=== PATIENT | female | born 1985 | race Caucasian/White ===

== ENCOUNTER 2025-01-21 10:24 | Observation (INO) | payer OTHER, SELFPAY ==
[2025-01-21] VITALS (14 sets, daily range): BP systolic 108–130; BP diastolic 25–76; PULSE 90–113; RESP 16–28; TEMP 36.1–37.1; O2SAT 98–100; BMI 24.0
--- NOTE | ~2025-01-21 | CT_ITS ---
EXAMINATION: CTA chest PE protocol DATE: 01/21/2025 14:08 INDICATION: Transient breath, chest pain and elevated d-dimer. TECHNIQUE: Computed tomography (CT) pulmonary angiogram of the chest was performed with 100 mL Omnipa que-350 intravenous contrast. Additional 3D reconstructions utilizing coronal maximum intensity proje ction (MIP) were performed. Automated exposure control and iterative reconstruction technique were em ployed. The dose-length product was 253.06 mGy-cm. COMPARISON: None FINDINGS: No pulmonary embolism. Calcified nodules in the superior segment of the right lower lobe consistent w ith old granulomatous disease. Mosaic attenuation in the dependent lower lobes consistent with atelec tasis and small regions of subsegmental more lucent air trapping. No pneumonia, pulmonary edema, pleu ral effusion or pneumothorax. Heart size is normal. No pericardial effusion. Thoracic aorta is normal in caliber. No pathologically enlarged thoracic lymphadenopathy. Visualized upper abdomen is unremar kable. Bones are unremarkable. IMPRESSION: 1. No pulmonary embolism or other acute cardiopulmonary disease. Reviewed, dictated and finalized at location A.
--- NOTE | ~2025-01-21 | XR_ITS ---
EXAMINATION: XR chest 2V 01/21/2025 11:20 INDICATION: Chest pain PROCEDURE: 2 view chest COMPARISON: No prior studies for comparison. FINDINGS: The lungs are clear. The cardiomediastinal silhouette is within normal limits. There are no pleural effusions. There is no pneumothorax suspected. IMPRESSION: 1: NO ACUTE CARDIOPULMONARY DISEASE. Reviewed, dictated and finalized at location B.
--- NOTE | 2025-01-21 10:27 | ECG_ITS ---
Test Date: 2025-01-21 10:36:55 Measurements Intervals [place] Rate: 98 P: 26 RI: 115 QRS: 0 QRSD: 93 T: 45 QT: 329 QTc: 422 Interpretive Statements SINUS RHYTHM WITH SHORT RI INTERVAL BASELINE ARTIFACT- I, II, AVR, AVL, AVF, V1-V2, V4-V6 BORDERLINE ECG No previous ECG available for comparison Electronically Signed On 01-21-2025 10:50:41 CDT by Geraldo Bui D.O.
--- NOTE | 2025-01-21 10:51 | PC.NURSE ---
patient requesting zofran before blood draw due to history of becoming nauseated when getting blood drawn. CHANTAL Marquez and CRISTIAN Horta aware.
[2025-01-21] MEDS: ONDANSETRON HCL ODT 4 MG TABLET PO (10:54)
[2025-01-21] MEDS: ASPIRIN 81 MG CHEWABLE TABLET 324 MG PO (10:54)
--- OUTSIDE RECORDS SUMMARY | 2025-01-21 10:57 | XMS_ITS | Data Portability ---
Author Organization [email or web address], Main Office Address [address] [place] [address] Assessment No assessment recorded. Plan of Treatment Reminders Order Date Submit Date Provider Last Modified By Organization Details Last Modified Time Details Appointments None recorded. Lab None recorded. Referral None recorded. Procedures None recorded. Surgeries None recorded. Imaging None recorded. Medication Orders neomycin 3.5 mg-polymyxi n 10,000 unit-hydroc ort 10 mg/mL eye drop,susp 2022 023 [facility] [id number], [address], 3 09:42:53 sertraline 50 mg tablet 2022 023 [facility] [id number] [address] [place], [address], 3 09:42:53 Patient TargetsNo targets recorded. Patient InstructionsNo instructions recorded. Reason for Referral None Reported. Problems Name Problem SNOMED Code Status Onset Date Resolution Date Notes Provider Name and Address Organization Details Recorded Time Generalized anxiety disorder 61626792 Active 2021 Not Available [facility] 3 20:01:48 Dyssomnia 12640393 Active 2021 Not Available [facility] 3 20:01:48 Anxiety 89255562 Active 2017 Not Available [facility] 3 20:01:48 Conjunctivitis 8155478 Active 2022 CHANTAL Prakash [address], [place], [address] , [email or web address] 3 09:42:13 Problem Notes None recorded. Procedures Surgical History Date Name Laterality Status Provider Name and Address Organization Details Recorded Time completed Not Available [facility] 0 10/09/2022 20:01:30 completed Not Available [facility] 0 10/09/2022 20:01:30 Imaging Results None recorded. Procedure Notes None recorded. Medical Equipment None Reported. Allergies Allergen ID Allergen Name Allergen Category Reaction Reaction Severity Criticality Documentation Date Start Date Code Code System Note Provider Name and Address Organization Details Recorded Time 42594 clindamyc in Not available other Not available Not available 10/09/2022 2582 RxNorm incre ased anxie ty Not Available [facility] 3 20:02:37 Medications Name Sig Start Date Stop Date Status Note LastModified by Organization Details LastModified Time Mirena 21 mcg/24 hr (up to 8 years) 52 mg intrauterin e device Take by intrauter ine route. 2019 active Not Available Not Available Not Avai lable clindamycin HCl 300 mg capsule 09/20 completed Not Available Not Available Not Available sertraline 100 mg tablet TAKE 1 TABLET BY MOUTH EVERY DAY 07/24 completed Not Available Not Available Not Available metronidazo le 500 mg tablet 09/20 completed Not Available Not Available Not Available amoxicillin 875 mg tablet Take 1 tablet every 12 hours by oral route. active Not Available Not Available No t Available alprazolam 0.25 mg tablet TAKE 1 TABLET BY MOUTH TWICE A DAY NEEDED 07/24 completed Not Available Not Available Not Available lorazepam 0.5 mg tablet TAKE 1 TABLET (0.5 MG) BY MOUTH ONE TIME FOR 1 DOSE. 07/24 completed Not Available Not Available Not Available neomycin-po lymyxin-dex ameth 3.5 mg/mL-10,00 0 unit/mL-0.1 % eye drops INSTILL 1 DROP INTO THE RIGHT EYE THREE TIMES DAILY active Not Available Not Available No t Available misoprostol 200 mcg tablet PLEASE SEE ATTACHED FOR DETAILED DIRECTION S 07/24 completed Not Available Not Available Not Available zolpidem 10 mg tablet TAKE 1 TABLET BY MOUTH EVERY DAY AT BEDTIME NEEDED active Not Available Not Available No t Available scopolamine 1 mg over 3 days transdermal patch Apply 1 patch every 72 hours by transderm al route as needed. active Not Available Not Available No t Available neomycin 3.5 mg-polymyxi n 10,000 unit-hydroc ort 10 mg/mL eye drop,susp INSTILL 1 DROP INTO AFFECTED EYE(S) BY OPHTHALMI C ROUTE EVERY 4 HOURS while awake for 5-7 days 2022 active Not Available Not Available Not Avai lable sertraline 50 mg tablet TAKE 1 TABLET BY MOUTH EVERY DAY active Not Available Not Available No t Available doxycycline hyclate 100 mg tablet TAKE 1 TABLET BY MOUTH TWICE DAILY WITH MEALS active Not Available Not Available No t Available escitalopra m 20 mg tablet Take 1 tablet every day by oral route. 09/20 completed Not Available Not Available Not Available Lexapro 10 mg tablet Take 1 tablet every day by oral route. 09/14 completed Not Available Not Available Not Available Vitals Date Recorded Body mass index (BMI) Body height Heart rate Respiratory rate Body temperature Body weight Systolic blood pressure Diastolic blood pressure Provider Name and Address Organization Details Last Updated DateTime 2 25.8 kg/m2 167.64 cm 80 /min 16 /min 97.9 [degF] 46672.7 8 g 120 mm[Hg] 80 mm[Hg] Not Available [facility] 3 20:01:34 Date Recorded Body height Oxygen saturation Oxygen saturation in Arterial blood by Pulse oximetry Heart rate Respiratory rate Body temperature Systolic blood pressure Diastolic blood pressure Provider Name and Address Organization Details Last Updated DateTime 2 167.64 cm 97 % 97 % 70 /min 16 /min 98 [degF] 118 mm[Hg] 68 mm[Hg] Not Available [facility] 3 20:01:34 Date Recorded Body height Body temperature Body mass index (BMI) Body weight Respiratory rate Oxygen saturation Oxygen saturation in Arterial blood by Pulse oximetry Heart rate Systolic blood pressure Diastolic blood pressure Provider Name and Address Organization Details Last Updated DateTime 3 167.64 cm 97.5 [degF] 27.5 kg/m2 90213.5 g 16 /min 99 % 99 % 64 /min 118 mm[Hg] 78 mm[Hg] TERA Funes [place] - [facility] 3 09:16:07 Social History Question Answer Notes LastModified by Organizat ion Details LastModified Time Tobacco Smoking Status Never Smoker Not Available [facility] 10/09/2022 20:01:25 Do You Have An Advance Directive? Yes [id number] Information not available 10/09/2022 What Is Your Level Of Caffeine Consumption? Heavy [id number] Information not available 10/09/2022 In The 14 Days Before Symptom Onset, Have You Had Close Contact With A Laboratory-confirm ed COVID-19 While That Case Was Ill? No [id number] Information not available 10/09/2022 In The 14 Days Before Symptom Onset, Have You Had Close Contact With A Person Who Is Under Investigation For COVID-19 While That Person Was Ill? No [id number] Information not available 10/09/2022 What Type Of Diet Are You Following? REGULAR [id number] Information not available 10/09/2022 What Is The Highest Grade Or Level Of School You Have Completed Or The Highest Degree You Have Received? BX39545-0 [id number] Information not available 10/09/2022 Have There Been Any Changes To Your Family Or Social Situation? No [id number] Information not available 10/09/2022 Are There Any Guns Present In Your Home? Yes [id number] Information not available 10/09/2022 Do You Use Insect Repellent Routinely? No [id number] Information not available 10/09/2022 Have You Ever Been Counseled For Unhealthy Alcohol Use? No [id number] [id number] Information not available 10/09/2022 What Is Your Relationship Status? Single [id number] 026 Information not available 10/09/2022 Do You Use Your Seat Belt Or Car Seat Routinely? Yes [id number] Information not available 10/09/2022 Do You Have Smoke And Carbon Monoxide Detectors In Your Home? Yes [id number] 026 Information not available 10/09/2022 Do You Use Sunscreen Routinely? Yes [id number] 026 Information not available 10/09/2022 Has Tobacco Cessation Counseling Been Provided? No [id number].[id number] 026 Information not available 10/09/2022 Have You Recently Traveled Abroad? No [id number] 026 Information not available 10/09/2022 Do You Have Any Dietary Restrictions? No [id number] 026 Information not available 10/09/2022 Sex: Unknown Functional Status Question Answer Note LastModified by Organizat ion Details LastModified Time Do you use any illicit or recreational drugs? No [id number] Information not available 10/09/2022 Do you or have you ever used any other forms of tobacco or nicotine? No [id number] Information not available 10/09/2022 What is your level of alcohol consumption? Occasional [id number] Information not available 10/09/2022 Are you currently employed? 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 Moderate [id number].[id number] Information not available 10/09/2022 Mental Status None recorded. Family History Relationship Description Onset Age of this Age Resolved Age Notes LastModified by Organization Details LastModified Time Father Hypertensive disorder [id number] Not available 10/09/2022 20:01:30 Medical History Condition Response HEADACHES/MIGRAINES Y ANXIETY DISORDER Y BACK / NECK PROBLEMS Y Gynecological History Statement/Question Response Menses Monthly N Abnormal Pap N Date of Last Pap 08/11/2015 Current Control Method IUD Sexually Active? Y Obstetrics History GPAL:G 2 P 0 0 0 2 Type Value Living 2 Total 2 Past Encounters Encounter ID Performer Location Encounter Start Date Encounter Closed Date Diagnosis/Indication Diagnosis SNOMED-CT Code Diagnosis ICD10 Code Diagnosis Note [id number] CHANTAL Prakash [facility] [place] [address] [place] [address] 11/12/2021 00:00:00 12/08/2021 13:24:02 [id number] CHANTAL Prakash [facility] [place] [address] [place] [address] 05/13/2022 00:00:00 05/13/2022 10:56:05 [id number] CHANTAL Prakash [facility] [place] [address] [place] [address] 07/24/2023 09:09:53 07/24/2023 09:42:05 Adult health examination 376334993 Z00.01 well exam completed. pt declines labs at this time. Generalize d anxiety disorder 75833142 F41.1 refill on sertraline 50mg daily. Conjunctivitis 6345974 H 10.9 rx for neomycin drops as directed Health Concerns Section Related Observation LastModified by Organization Detai ls LastModified Time None Recorded Concern Status LastModified by Organization Details LastModified Time None Recorded Advance Directives Directive Y: Payers Insurance Date Sequence Insurance Name Policy Number Policy Carroll Covered Member ID Carroll Member ID Guarantor Name 08/07/2023 1 [facility] [id number] Lydia Adams [id number] Lydia Adams 07/23/2023 1 [facility] [id number] Lydia Adams [id number] Lydia Adams Notes Date Note Type Note Provider Name and Address Organization Details Recorded Time 11/12/2021 text/html Anxiety/Depressi onR eported bypatient.Quality:s ymptoms worse during the day Severity:denies suicidal ideations; able to maintain relationships;inter ference with sleep Duration:symptoms lasting over 2 weeks Onset/Timing:still present Context:major life stressors;family problems;trouble at work Modifying Factors:medications as directed Associated Symptoms:denies homicidal ideations; no significant weight gain; no significant weight loss; no visual/auditory hallucinations; no delusions; no shortness of breath; no crying spells; no panic; no isolation; appetite good; energy good; no apathy; maintaining functionality;anxie ty;insomnia;sleep disturbances Not Available [email or web address] 12/08/2021 13:24:02 05/13/2022 text/html Anxiety/Depressi onR eported bypatient.Quality:s ymptoms improved Severity:denies suicidal ideations; able to maintain relationships; does not interfere with activities of daily living Context:no major life stressors Associated Symptoms:denies homicidal ideations; no significant weight gain; no significant weight loss; no visual/auditory hallucinations; no delusions; no shortness of breath; mood good; no anxiety; no crying spells; no panic; no isolation; appetite good; energy good; no apathy; maintaining functionality Not Available [email or web address] 05/13/2022 10:56:05 07/24/2023 text/html Anxiety/Depressi onR eported bypatient.Quality:d oesnt matter time of day Severity:denies suicidal ideations; able to maintain relationships; does not interfere with activities of daily living Duration:symptoms lasting over 2 weeks Onset/Timing:still present; stable Context:no major life stressors Modifying Factors:rx Associated Symptoms:denies homicidal ideations; no significant weight gain; no significant weight loss; no visual/auditory hallucinations; no delusions; no shortness of breath Wellness CHANTAL Prakash [address] [place] [address] [address], [place], [address], [place] [facility] 08/07/2023 15:44:16 OBGyn Episode No OBEpisode recorded.
--- NOTE | 2025-01-21 10:58 | PC.NURSE ---
patient unable to provide urine sample at this time, states she will just drink a bunch of water. educated patient at this time to hold off on any oral intake at this time until we start having test results come in
--- NOTE | 2025-01-21 11:02 | ED_ITS ---
HPI - Arrhythmia/Palpitations General Chief Complaint: Arrhythmia/Palpitations <SYBIL Miranda Last Filed: 01/21/25 15:40> Stated Complaint: cp, rapid heart rate <SYBIL Miranda Last Filed: 01/21/25 15:40> Time Seen by Provider: 01/21/25 10:33 <SYBIL Miranda Last Filed: 01/21/25 15:40> Source: patient <SYBIL Miranda Last Filed: 01/21/25 15:40> Mode of arrival: ambulatory <SYBIL Miranda Last Filed: 01/21/25 15:40> Limitations: no limitations <SYBIL Miranda Last Filed: 01/21/25 15:40> History of Present Illness HPI narrative: Patient is a 39 y/o female, with PMH of anxiety, who presents to the ED with c/o chest pain and weakness. Patient reports previous history of anxiety, states she was on a medication for this for approximately 1 year, but is no longer on this. She states she had a severe anxiety attack in October. Since then, she has been having intermittent weakness, CP, racing heart palpitations, HAs. She states yesterday she had a 103F fever which prompted her presentation. She did also have a fever last week. She denies recent cough or cold symptoms, nausea, vomiting, diarrhea, rash, wounds, pain or swelling in her legs. Denies shortness of breath. <SYBIL Miranda Last Filed: 01/21/25 15:40> Related Data Home Medications: Home Medications ?Medication ?Instructions ?Recorded ?Confirmed ?Last Taken ?Type No Home Medications 01/21/25 01/21/25 Unknown History <SYBIL Miranda Last Filed: 01/21/25 15:40> Allergies/Adverse Reactions: Allergies Allergy/AdvReac Type Severity Reaction Status Date / Time No Known Allergies Allergy Verified 01/21/25 17:55 <SYBIL Miranda Last Filed: 01/21/25 15:40> Review of Systems 2 Review of Systems: All systems reviewed & are unremarkable except as noted in HPI. <Alma Perrin PA-C - Last Filed: 01/21/25 15:40> All systems reviewed & are unremarkable except as noted in HPI and below < Alma Perrin PA-C - Last Filed: 01/21/25 15:40> [facility] Family History Family History: Family History (Updated 01/21/25 @ 17:49 by Lalitha Beckwith RN) Father Hypertension Mother Heart disease <Alma Perrin PA-C - Last Filed: 01/21/25 15:40> Social History Social History: Social History Smoking status: Never smoker Alcohol intake: former Drinks per week: 2 Substance use: never Do You Feel Safe in your Home?: Yes Lack of Transportation: No Lack of Food: Never True Current Housing: I Have Housing Concerned About Future Housing: No Difficulty Paying Gas/Electric Bills: No Difficulty Paying for Meds: No Currently Unemployed: No Education: Don't Know Difficulty w/ Childcare or Family Care: No Spiritual care concerns: No <Alma Perrin PA-C - Last Filed: 01/21/25 15:40> Exam 2 Narrative: GENERAL: Anxious appearing, well-nourished, non-toxic, in no acute distress. HEAD: Normocephalic, atraumatic. RESPIRATORY: Airway patent, respirations nonlabored. Clear to auscultation bilaterally, no rales, rhonchi, wheezing. CARDIOVASCULAR: Borderline tachycardic with regular rhythm without murmurs, rubs, or gallops. ABDOMINAL: Soft, nontender, nondistended. Normoactive BS. MUSCULOSKELETAL: Moves all extremities. No gross deformities. No peripheral edema. No calf tenderness. SKIN: Warm, dry, normal color. NEURO: A&O X3. Speech clear. Cranial nerves II-XII grossly intact. Steady gait. No ataxic movements. PSYCHIATRIC: Anxious. Normal interaction. <Alma Perrin PA-C - Last Filed: 01/21/25 15:40> Course MARINE REPORTER/PA Physician Supervision For this patient encounter, I reviewed the MARINE REPORTER or PA documentation, treatment plan, and medical decision making; and I had [id number] time with this patient. <Georgi Arora MD - Last Filed: 01/21/25 18:22> Vital Signs Vital signs: Vital Signs Oxygen Delivery Room Air 01/21/25 10:48 Temperature 98.0 F 01/21/25 17:39 Pulse Rate 94 01/21/25 17:39 Respiratory Rate 16 01/21/25 17:39 Blood Pressure 124/72 01/21/25 17:39 Pulse Oximetry 100 01/21/25 17:39 Oxygen Delivery Room Air 01/21/25 10:48 <Alma Perrin PA-C - Last Filed: 01/21/25 15:40> Vital Signs Oxygen Delivery Room Air 01/21/25 10:48 Temperature 98.0 F 01/21/25 17:39 Pulse Rate 94 01/21/25 17:39 Respiratory Rate 16 01/21/25 17:39 Blood Pressure 124/72 01/21/25 17:39 Pulse Oximetry 100 01/21/25 17:39 Oxygen Delivery Room Air 01/21/25 10:48 <Georgi Arora MD - Last Filed: 01/21/25 18:22> MDM - Arrhythmia/Palpitations MDM Narrative Medical decision making narrative: Patient presented to ED with intermittent racing heart palpitations, chest pain, weakness since October. History of anxiety. Patient is borderline tachycardic upon arrival. Rates more in the 90s upon my evaluation. Otherwise stable. She does appear mildly anxious. EKG with sinus rhythm, short AL, otherwise unremarkable. No concerning ischemic changes. CBC did result with marked anemia of 5.6. No records to compare to. Hematocrit 22.1. Microcytic with MCV of 61.4. No leukocytosis. Platelets within normal range. CMP unremarkable. Stable electrolytes. Normal magnesium. Troponin undetectable X2. TSH WNL. Chest x-ray is clear. D-dimer did result elevated at 1.96. CTA of chest was obtained and unremarkable. No PE. Patient updated on lab and imaging findings. She denies ever being told she has been anemic before. Does note history of internal hemorrhoid which bleeds occasionally, denies other rectal bleeding, melena, heavy vaginal bleeding, hematuria, epistaxis. Denies history of previous blood transfusion. Patient declined JOI in the ED. Anemia labs were added on. Appears consistent with iron deficiency anemia. 2U PRBC ordered. Will be admitted for further evaluation. Discussed case with Almaz Gamboa MARINE REPORTER hospitalist, accepted patient for admission. Patient in agreement with plan and need for admission. <Alma Perrin PA-C - Last Filed: 01/21/25 15:40> Medical Records Attestation: I reviewed the patient's medical records. <Alma Perrin PA-C - Last Filed: 01/21/25 15:40> Lab Data Attestation: I reviewed the patient's lab results. <Alma Perrin PA-C - Last Filed: 01/21/25 15:40> Result diagrams: 01/21/25 11:31 01/21/25 11:31 <SYBIL Miranda Last Filed: 01/21/25 15:40> Labs: Lab Results 01/21/25 01/21/25 01/21/25 Range/Units 11:29 11:30 11:31 WBC 5.7 (4.5-10.0) K/mm3 RBC 3.60 L (4.2-5.4) M/mm3 Hgb 5.6 L* (12.0-15.0) g/dL Hct 22.1 L (37.0-47.0) % MCV 61.4 L (80-100) fl MCH 15.6 L (26-34) pg MCHC 25.3 L (32-36) g/dl RDW 22.5 H (11.5-14.5) % Plt Count 198 (150-375) k/mm3 MPV 8.3 (7.4-10.4) fl Immature Gran % (Auto) 0.4 (0-0.5) % Neut % (Auto) 57.8 (45.5-73.1) % Lymph % (Auto) 28.5 (18.3-44.2) % [place] % (Auto) 12.2 H (2.6-8.5) % Eos % (Auto) 0.4 (0-4.4) % Baso % (Auto) 0.7 (0.2-1.2) % Lymph # (Auto) 1.61 (0.9-3.2) K/mm3 [place] # (Auto) 0.7 H (0.1-0.6) K/mm3 Eos # (Auto) 0.0 (0-0.3) K/mm3 Baso # (Auto) 0.0 (0.0-0.1) K/mm3 Abs Immat Gran (auto) 0.02 (0.00-0.031) K/mm3 Absolute Neuts (auto) 3.3 (1.3-6.7) K/mm3 Absolute Nucleated RBC 0.000 (0.0-0.012) K/mm3 Band Neutrophils % Not Reportable Nucleated RBC % 0.0 (0.0-0.2) % Platelet Estimate Adequate (Adequate) Hypochromasia 2+ Poikilocytosis 1+ Anisocytosis 2+ Target Cells 1+ Tear Drop Cells 1+ Ovalocytes 1+ Acanthocytes (Spur) 1+ Schistocytes 1+ Absolute Retic 0.06 (0.02-0.10) 10^6/uL Percent Retic 1.86 (0.7-4.3) % Immature Retic Fraction 32.7 H (3.0-15.9) % Retic Hgb Content 15.5 L (28.2-36.6) pg PT 13.3 Cancelled (11.1-14.7) Seconds INR 1.0 Cancelled APTT 25.7 Cancelled (22.3-36.8) Seconds D-Dimer 1.96 H Cancelled (<0.48) ug/mL Sodium 136 L (137-145) mmol/L Potassium 3.9 (3.4-5.0) mmol/L Chloride 107 (98-107) mmol/L Carbon Dioxide 24 (22-30) mmol/L Anion Gap 5 (4-12) mmol/L BUN 7 (7-17) mg/dL Creatinine 0.69 L (0.7-1.0) mg/dL Estim Creat Clear Calc Not Reportable Estimated GFR > 60 (59 - ) Glucose 99 (65-110) mg/dL Calcium 8.6 (8.4-10.2) mg/dL Magnesium Cancelled 2.1 Iron 18 L (37-170) ug/dL TIBC 416 (261-462) ug/dL % Saturation 4 L (20-50) % Transferrin (206-381) mg/dL Ferritin 3.42 L (6.24-137) ng/mL Total Bilirubin 0.2 (0.2-1.3) mg/dL AST 28 (14-36) U/L ALT 15 (6-35) U/L Alkaline Phosphatase 60 (38-126) U/L Lactate Dehydrogenase (120-246) U/L Troponin I < 0.012 (0.000-0.034) ng/mL Total Protein 6.3 (6.3-8.2) g/dL Albumin 3.6 (3.5-5.1) g/dL Lipase 26 (23-300) U/L Vitamin B12 (239-931) pg/mL Folate (2.76->20) ng/mL TSH (Reflex) 1.210 (0.465-4.68) uIU/mL Blood Type Antibody Screen Crossmatch 01/21/25 Range/Units 13:27 WBC (4.5-10.0) K/mm3 RBC (4.2-5.4) M/mm3 Hgb (12.0-15.0) g/dL Hct (37.0-47.0) % MCV (80-100) fl MCH (26-34) pg MCHC (32-36) g/dl RDW (11.5-14.5) % Plt Count (150-375) k/mm3 MPV (7.4-10.4) fl Immature Gran % (Auto) (0-0.5) % Neut % (Auto) (45.5-73.1) % Lymph % (Auto) (18.3-44.2) % [place] % (Auto) (2.6-8.5) % Eos % (Auto) (0-4.4) % Baso % (Auto) (0.2-1.2) % Lymph # (Auto) (0.9-3.2) K/mm3 [place] # (Auto) (0.1-0.6) K/mm3 Eos # (Auto) (0-0.3) K/mm3 Baso # (Auto) (0.0-0.1) K/mm3 Abs Immat Gran (auto) (0.00-0.031) K/mm3 Absolute Neuts (auto) (1.3-6.7) K/mm3 Absolute Nucleated RBC (0.0-0.012) K/mm3 Band Neutrophils % Nucleated RBC % (0.0-0.2) % Platelet Estimate (Adequate) Hypochromasia Poikilocytosis Anisocytosis Target Cells Tear Drop Cells Ovalocytes Acanthocytes (Spur) Schistocytes Absolute Retic (0.02-0.10) 10^6/uL Percent Retic (0.7-4.3) % Immature Retic Fraction (3.0-15.9) % Retic Hgb Content (28.2-36.6) pg PT (11.1-14.7) Seconds INR APTT (22.3-36.8) Seconds D-Dimer (<0.48) ug/mL Sodium (137-145) mmol/L Potassium (3.4-5.0) mmol/L Chloride (98-107) mmol/L Carbon Dioxide (22-30) mmol/L Anion Gap (4-12) mmol/L BUN (7-17) mg/dL Creatinine (0.7-1.0) mg/dL Estim Creat Clear Calc Estimated GFR (59 - ) Glucose (65-110) mg/dL Calcium (8.4-10.2) mg/dL Magnesium Iron (37-170) ug/dL TIBC (261-462) ug/dL % Saturation (20-50) % Transferrin 319 (206-381) mg/dL Ferritin (6.24-137) ng/mL Total Bilirubin (0.2-1.3) mg/dL AST (14-36) U/L ALT (6-35) U/L Alkaline Phosphatase (38-126) U/L Lactate Dehydrogenase 150 (120-246) U/L Troponin I < 0.012 (0.000-0.034) ng/mL Total Protein (6.3-8.2) g/dL Albumin (3.5-5.1) g/dL Lipase (23-300) U/L Vitamin B12 585.0 (239-931) pg/mL Folate 13.8 (2.76->20) ng/mL TSH (Reflex) (0.465-4.68) uIU/mL Blood Type O Positive Antibody Screen Negative Crossmatch See Detail <Alma Perrin PA-C - Last Filed: 01/21/25 15:40> Lab Results 01/21/25 01/21/25 01/21/25 Range/Units 11:29 11:30 11:31 WBC 5.7 (4.5-10.0) K/mm3 RBC 3.60 L (4.2-5.4) M/mm3 Hgb 5.6 L* (12.0-15.0) g/dL Hct 22.1 L (37.0-47.0) % MCV 61.4 L (80-100) fl MCH 15.6 L (26-34) pg MCHC 25.3 L (32-36) g/dl RDW 22.5 H (11.5-14.5) % Plt Count 198 (150-375) k/mm3 MPV 8.3 (7.4-10.4) fl Immature Gran % (Auto) 0.4 (0-0.5) % Neut % (Auto) 57.8 (45.5-73.1) % Lymph % (Auto) 28.5 (18.3-44.2) % [place] % (Auto) 12.2 H (2.6-8.5) % Eos % (Auto) 0.4 (0-4.4) % Baso % (Auto) 0.7 (0.2-1.2) % Lymph # (Auto) 1.61 (0.9-3.2) K/mm3 [place] # (Auto) 0.7 H (0.1-0.6) K/mm3 Eos # (Auto) 0.0 (0-0.3) K/mm3 Baso # (Auto) 0.0 (0.0-0.1) K/mm3 Abs Immat Gran (auto) 0.02 (0.00-0.031) K/mm3 Absolute Neuts (auto) 3.3 (1.3-6.7) K/mm3 Absolute Nucleated RBC 0.000 (0.0-0.012) K/mm3 Band Neutrophils % Not Reportable Nucleated RBC % 0.0 (0.0-0.2) % Platelet Estimate Adequate (Adequate) Hypochromasia 2+ Poikilocytosis 1+ Anisocytosis 2+ Target Cells 1+ Tear Drop Cells 1+ Ovalocytes 1+ Acanthocytes (Spur) 1+ Schistocytes 1+ Absolute Retic 0.06 (0.02-0.10) 10^6/uL Percent Retic 1.86 (0.7-4.3) % Immature Retic Fraction 32.7 H (3.0-15.9) % Retic Hgb Content 15.5 L (28.2-36.6) pg PT 13.3 Cancelled (11.1-14.7) Seconds INR 1.0 Cancelled APTT 25.7 Cancelled (22.3-36.8) Seconds D-Dimer 1.96 H Cancelled (<0.48) ug/mL Sodium 136 L (137-145) mmol/L Potassium 3.9 (3.4-5.0) mmol/L Chloride 107 (98-107) mmol/L Carbon Dioxide 24 (22-30) mmol/L Anion Gap 5 (4-12) mmol/L BUN 7 (7-17) mg/dL Creatinine 0.69 L (0.7-1.0) mg/dL Estim Creat Clear Calc Not Reportable Estimated GFR > 60 (59 - ) Glucose 99 (65-110) mg/dL Calcium 8.6 (8.4-10.2) mg/dL Magnesium Cancelled 2.1 Iron 18 L (37-170) ug/dL TIBC 416 (261-462) ug/dL % Saturation 4 L (20-50) % Transferrin (206-381) mg/dL Ferritin 3.42 L (6.24-137) ng/mL Total Bilirubin 0.2 (0.2-1.3) mg/dL AST 28 (14-36) U/L ALT 15 (6-35) U/L Alkaline Phosphatase 60 (38-126) U/L Lactate Dehydrogenase (120-246) U/L Troponin I < 0.012 (0.000-0.034) ng/mL Total Protein 6.3 (6.3-8.2) g/dL Albumin 3.6 (3.5-5.1) g/dL Lipase 26 (23-300) U/L Vitamin B12 (239-931) pg/mL Folate (2.76->20) ng/mL TSH (Reflex) 1.210 (0.465-4.68) uIU/mL Blood Type Antibody Screen Crossmatch 06/13/25 Range/Units 13:27 WBC (4.5-10.0) K/mm3 RBC (4.2-5.4) M/mm3 Hgb (12.0-15.0) g/dL Hct (37.0-47.0) % MCV (80-100) fl MCH (26-34) pg MCHC (32-36) g/dl RDW (11.5-14.5) % Plt Count (150-375) k/mm3 MPV (7.4-10.4) fl Immature Gran % (Auto) (0-0.5) % Neut % (Auto) (45.5-73.1) % Lymph % (Auto) (18.3-44.2) % [place] % (Auto) (2.6-8.5) % Eos % (Auto) (0-4.4) % Baso % (Auto) (0.2-1.2) % Lymph # (Auto) (0.9-3.2) K/mm3 [place] # (Auto) (0.1-0.6) K/mm3 Eos # (Auto) (0-0.3) K/mm3 Baso # (Auto) (0.0-0.1) K/mm3 Abs Immat Gran (auto) (0.00-0.031) K/mm3 Absolute Neuts (auto) (1.3-6.7) K/mm3 Absolute Nucleated RBC (0.0-0.012) K/mm3 Band Neutrophils % Nucleated RBC % (0.0-0.2) % Platelet Estimate (Adequate) Hypochromasia Poikilocytosis Anisocytosis Target Cells Tear Drop Cells Ovalocytes Acanthocytes (Spur) Schistocytes Absolute Retic (0.02-0.10) 10^6/uL Percent Retic (0.7-4.3) % Immature Retic Fraction (3.0-15.9) % Retic Hgb Content (28.2-36.6) pg PT (11.1-14.7) Seconds INR APTT (22.3-36.8) Seconds D-Dimer (<0.48) ug/mL Sodium (137-145) mmol/L Potassium (3.4-5.0) mmol/L Chloride (98-107) mmol/L Carbon Dioxide (22-30) mmol/L Anion Gap (4-12) mmol/L BUN (7-17) mg/dL Creatinine (0.7-1.0) mg/dL Estim Creat Clear Calc Estimated GFR (59 - ) Glucose (65-110) mg/dL Calcium (8.4-10.2) mg/dL Magnesium Iron (37-170) ug/dL TIBC (261-462) ug/dL % Saturation (20-50) % Transferrin 319 (206-381) mg/dL Ferritin (6.24-137) ng/mL Total Bilirubin (0.2-1.3) mg/dL AST (14-36) U/L ALT (6-35) U/L Alkaline Phosphatase (38-126) U/L Lactate Dehydrogenase 150 (120-246) U/L Troponin I < 0.012 (0.000-0.034) ng/mL Total Protein (6.3-8.2) g/dL Albumin (3.5-5.1) g/dL Lipase (23-300) U/L Vitamin B12 585.0 (239-931) pg/mL Folate 13.8 (2.76->20) ng/mL TSH (Reflex) (0.465-4.68) uIU/mL Blood Type O Positive Antibody Screen Negative Crossmatch See Detail <Georgi Arora MD - Last Filed: 01/21/25 18:22> Imaging Data Attestation: I personally reviewed and interpreted this imaging study as follows: < Alma Perrin PA-C - Last Filed: 01/21/25 15:40> Radiologist's impression: ITS Impressions Chest X-Ray 01/21/25 11:24 IMPRESSION: 1: NO ACUTE CARDIOPULMONARY DISEASE. Chest CTA 01/21/25 14:51 IMPRESSION: 1. No pulmonary embolism or other acute cardiopulmonary disease. <Alma Perrin PA-C - Last Filed: 01/21/25 15:40> ECG Data EKG #1: Attestation: I personally reviewed and interpreted this ECG as follows: <Alma Perrin PA-C - Last Filed: 01/21/25 15:40> ECG completion date: 01/21/25 <Alma Perrin PA-C - Last Filed: 01/21/25 15:40> ECG completion time: 10:36 <Alma Perrin PA-C - Last Filed: 01/21/25 15:40> EKG Interpretation: normal rate (98), sinus rhythm, non-specific ST changes and other (short AL) <Alma Perrin PA-C - Last Filed: 01/21/25 15:40> Discharge Plan Discharge Clinical Impression: Anxiety, Palpitations, Generalized weakness Anemia Qualifiers: Anemia type: unspecified type Qualified Code(s): D64.9 - Anemia, unspecified <Alma Perrin PA-C - Last Filed: 01/21/25 15:40> Patient Disposition: Still a Patient <Alma Perrin PA-C - Last Filed: 01/21/25 15:40> Condition: Stable <Alma Perrin PA-C - Last Filed: 01/21/25 15:40>
[2025-01-21 11:38] LABS: Basophils Percent Auto 0.7 % (0.2-1.2); Eosinophils Percent Auto 0.4 % (0-4.4); Hematocrit 22.1 % (37.0-47.0); Immature Granulocyte Absolute 0.02 K/mm3 (0.00-0.031); Immature Granulocyte Percent A 0.4 % (0-0.5); Lymphocytes Absolute Auto 1.61 K/mm3 (0.9-3.2); Lymphocytes Percent Auto 28.5 % (18.3-44.2); Mean Corpuscular HGB Conc 25.3 g/dl (32-36); Mean Corpuscular Hemoglobin 15.6 pg (26-34); Mean Corpuscular Volume 61.4 fl (80-100); Mean Platelet Volume 8.3 fl (7.4-10.4); Monocytes Absolute Auto 0.7 K/mm3 (0.1-0.6); Monocytes Percent Auto 12.2 % (2.6-8.5); Neutrophils Absolute Auto 3.3 K/mm3 (1.3-6.7); Neutrophils Percent Auto 57.8 % (45.5-73.1); Platelet Count Result 198 k/mm3 (150-375); Red Cell Distribution Width 22.5 % (11.5-14.5); White Blood Count 5.7 K/mm3 (4.5-10.0)
[2025-01-21 11:47] LABS: Alanine Aminotransferase 15 U/L (6-35); Albumin Level 3.6 g/dL (3.5-5.1); Alkaline Phosphatase 60 U/L (38-126); Anion Gap 5 mmol/L (4-12); Aspartate Amino Transferase 28 U/L (14-36); Bilirubin,Total 0.2 mg/dL (0.2-1.3); Blood Urea Nitrogen 7 mg/dL (7-17); Calcium 8.6 mg/dL (8.4-10.2); Carbon Dioxide 24 mmol/L (22-30); Chloride 107 mmol/L (98-107); Estimated Glomerular Filt Rate > 60; Glucose 99 mg/dL (65-110); Lipase 26 U/L (23-300); Magnesium 2.1 mg/dL (1.6-2.3); Potassium 3.9 mmol/L (3.4-5.0); Sodium 136 mmol/L (137-145); Total Protein 6.3 g/dL (6.3-8.2)
[2025-01-21 11:54] LABS: Prothrombin Time 13.3 Seconds (11.1-14.7)
[2025-01-21 11:55] LABS: Partial Thromboplastin Time 25.7 Seconds (22.3-36.8)
[2025-01-21 11:57] LABS: D Dimer 1.96 ug/mL (<0.48)
[2025-01-21 11:58] LABS: Troponin I < 0.012 ng/mL (0.000-0.034)
[2025-01-21 12:07] LABS: Hemoglobin 5.6 g/dL (12.0-15.0)
[2025-01-21 12:11] LABS: Hypochromasia 2+; Platelet Estimate Adequate (Adequate)
[2025-01-21 12:12] LABS: Anisocytosis 2+; Poikilocytosis 1+
[2025-01-21 12:13] LABS: Acanthocytes 1+; Ovalocytes 1+; Schistocytes 1+; Target Cells 1+; Tear Drop Cells 1+
[2025-01-21] MEDS: LORazepam (*CRX) 0.5 MG TABLET PO (12:36)
--- NOTE | 2025-01-21 12:41 | PC.NURSE ---
patient refusing iv access until her anxiety medication kicks in. States she is too anxious to go through getting an iv at this time
[2025-01-21 13:01] LABS: Immature Reticulocyte Fraction 32.7 % (3.0-15.9); Reticulocyte Hemoglobin Conten 15.5 pg (28.2-36.6); Reticulocyte Percent 1.86 % (0.7-4.3); Reticulocytes Absolute 0.06 10^6/uL (0.02-0.10)
--- NOTE | 2025-01-21 13:53 | PC.NURSE ---
blood consent explained, risks of transfusion along with benefits of transfusion. Explained to the patient that an RN would be present during the first 15 minutes of infusion to monitor for reactions. patient signed blood consent.
[2025-01-21 14:11] LABS: Troponin I < 0.012 ng/mL (0.000-0.034)
[2025-01-21 14:37] LABS: Iron 18 ug/dL (37-170)
[2025-01-21 14:46] LABS: Percent Iron Saturation 4 % (20-50)
[2025-01-21 15:13] LABS: Ferritin 3.42 ng/mL (6.24-137)
[2025-01-21] MEDS: SODIUM CHLORIDE 0.9% IV 250 ML 30 ML IV CONT (15:16)
[2025-01-21 15:22] LABS: Lactate Dehydrogenase 150 U/L (120-246)
[2025-01-21 15:30] LABS: Transferrin 319 mg/dL (206-381)
--- NOTE | 2025-01-21 17:01 | P.HP_ITS ---
H&P: HPI History of Present Illness Date/Time: 01/21/25 17:01 Chief Complaint: Weakness Narrative: 39-year-old female past medical history of anxiety presents the hospital complaining of weakness. Patient states that since October she has noticed she is fatigued, short of breath, decreased appetite with about a 20 lb weight loss. She states that in October she also had a panic attack. She also states that she has internal hemorrhoids that will bleed when she has bowel movements however she states that it is drops of blood not clots or bloody stool. She states that she does not have a menstrual cycle due to her IUD. Denies vomiting blood or coffee-ground emesis. She states that for the last several months she is felt like her heart has been pounding and she has been taking her blood pressure. Last night she states that whenever she woke up diaphoretic with her heart racing her blood pressure was 230/110 and her temperature was 103?. She states that her symptoms have been slowly increasing over the last couple months. Lab work in the ED shows anemia at 5.6, D-dimer of 1.96 sodium of 136, iron of 18, saturation at for, TBI CT of 416, transferrin of 319, ferritin of 3.42, vitamin-B and folate pending. TSH 1.210. Chest x-ray shows no acute cardiopulmonary process. CTA shows no acute pulmonary embolism. EKG was sinus rhythm. 2 units of RBC ordered for patient. Review of Systems Review of Systems: 12 systems were reviewed and are negativ e except for as per HPI. [facility] Family History Family History (Updated 01/21/25 @ 17:49 by Lalitha Beckwith RN) Father Hypertension Mother Heart disease Social History Social History Smoking status: Never smoker Alcohol intake: former Drinks per week: 2 Substance use: never Do You Feel Safe in your Home?: Yes Lack of Transportation: No Lack of Food: Never True Current Housing: I Have Housing Concerned About Future Housing: No Difficulty Paying Gas/Electric Bills: No Difficulty Paying for Meds: No Currently Unemployed: No Education: Don't Know Difficulty w/ Childcare or Family Care: No Spiritual care concerns: No Meds Home Medications and Allergies Home Medications ?Medication ?Instructions ?Recorded ?Confirmed ?Type No Home Medications 01/21/25 01/21/25 History Allergies Allergy/AdvReac Type Severity Reaction Status Date / Time No Known Allergies Allergy Verified 01/21/25 17:55 Vital Signs Vital Signs - 24 hr 01/21/25 10:48 01/21/25 10:59 01/21/25 12:42 Temperature 98.7 F Pulse Rate 102 H 113 H Respiratory Rate 18 18 Blood Pressure 130/67 Pulse Oximetry 100 100 Oxygen Delivery Room Air 01/21/25 15:13 01/21/25 15:19 01/21/25 15:29 Temperature 98.5 F 98.3 F Pulse Rate 103 H 102 H 100 Respiratory Rate 20 23 H 22 H Blood Pressure 129/66 121/65 120/58 L Pulse Oximetry 100 100 100 Oxygen Delivery Exam Narrative: General: well appearing, appears stated age. HEENT: normocephalic, atraumatic. Mucous membranes moist. EOMI, PERRLA, bilateral sclera anicteric, no conjunctival injection. Neck supple without JVD, lymphadenopathy, or bruit. Respiratory: clear to ascultation bilaterally. No rales/rhonic/wheezes. Cardiovascular: Regular rate and rhythm, normal S1-S2 upon ascultation. No murmurs, rubs, or clicks. PMI is nondisplaced, capillary refill less than 3 second. Abdomen: Soft, round, no pulsatile masses, nondistended and nontender. No rebound, no guarding. No CVA tenderness, no hepatosplenomegaly. Bowel sounds present to all four quadrants. No high pitch or tinkling sounds, resonant to percussion. Extremities: No cyanosis, clubbing, or edema present. Pulses are palpable 2/2. Active ROM to all four extremities. Neuro: Alert and orientated x 4. PERRLA. Cranial nerves 2-12 intact without focal deficit. Skin: Warm, dry, and intact, without rash, erythema, or lesion. Psych: pleasant, cooperative, normal speech, normal affect, no hallucinations, no dysarthia H&P: Results Labs Labs: Short CBC 01/21/25 Range/Units 11:31 WBC 5.7 (4.5-10.0) K/mm3 Hgb 5.6 L* (12.0-15.0) g/dL Hct 22.1 L (37.0-47.0) % Plt Count 198 (150-375) k/mm3 BMP 01/21/25 11:31 Sodium 136 L Potassium 3.9 Chloride 107 Carbon Dioxide 24 BUN 7 Creatinine 0.69 L Glucose 99 Calcium 8.6 Cardiac Enzymes 01/21/25 01/21/25 Range/Units 11:31 13:27 Troponin I < 0.012 < 0.012 (0.000-0.034) ng/mL Liver Function 01/21/25 Range/Units 11:31 Total Bilirubin 0.2 (0.2-1.3) mg/dL AST 28 (14-36) U/L ALT 15 (6-35) U/L Alkaline Phosphatase 60 (38-126) U/L Albumin 3.6 (3.5-5.1) g/dL Assessment and Plan Assessment and plan (1) Iron deficiency anemia: Code(s): D50.9 - Iron deficiency anemia, unspecified Status: Acute Assessment and Plan: Hemoglobin 5.8 on admission Transfuse 2 units of RBCs 01/21 Total iron deficiency about 1600 mg 400 mg of Venofer now 300 mg of Venofer in a.m. Hemoglobin after transfusion is 8.1, adequate response No signs of acute bleeding She likely has iron deficiency anemia on top of chronic blood loss from internal hemorrhoids, if her hemoglobin continues to drop she will benefit from a surgical consult and CT of abdomen pelvis. (2) Generalized weakness: Code(s): R53.1 - Weakness Status: Acute Assessment and Plan: Likely secondary to above Patient states that she is still able to work out however she feels like she is weaker than she was and No need for PT OT Orthostatic vital signs Telemetry monitoring (3) Anxiety: Code(s): F41.9 - Anxiety disorder, unspecified Status: Acute Assessment and Plan: Patient states that she took herself off anxiety medications Patient's blood pressure could be elevated due to anxiety as the hypertension is intermittent Quality VTE Prophylaxis VTE prophylaxis: mechanical ordered If No VTE Prophylaxis Answer both mechanical and pharmacologic: Reason no pharmacologic proph: medical contraindication active bleeding/bleeding risk Hospitalist MIPS Advance Care Plan I have confirmed that the patient's Advanced Care Plan is present, code status is documented, or surrogate decision maker is listed in patient medical record.: Yes Medication Reconciliation I have utilized all available resources to obtain, update and review the patie nts current medications (includes all prescriptions, OTC, herbals, cannabis, and nutritional supplements).: Yes
--- NOTE | 2025-01-21 17:46 | ADMGEN ---
This patient, Lydia Adams, was admitted to [facility] Surg Room 329-01. Patient/family oriented to hospital policies and general routines including ID bracelet, bed and alarms, visiting hours, pain management, procedures, bathroom and other care routines, personal items, smoking policy, room service/diet, and visiting hours. Information on how to activate the Rapid Response Team has been discussed. Patient/Family are encouraged to report perceived risks to care and to ask questions if they do not understand what they are told or what they should do. Report from [place].
[2025-01-21 18:07] LABS: Folic Acid 13.8 ng/mL (2.76->20)
[2025-01-21] MEDS: ONDANSETRON INJ 4 MG/2 ML VIAL IV PUSH (21:36)
[2025-01-21] MEDS: IRON SUCROSE COMPLEX 400 MG in SODIUM CHLORIDE 0.9% IV 250 ML 108 MG IVPB (21:40)
[2025-01-21 22:10] LABS: Hematocrit 29.5 % (37.0-47.0); Hemoglobin 8.1 g/dL (12.0-15.0)
[2025-01-21 22:26] LABS: Anion Gap 8 mmol/L (4-12); Blood Urea Nitrogen 7 mg/dL (7-17); Calcium 8.8 mg/dL (8.4-10.2); Carbon Dioxide 24 mmol/L (22-30); Chloride 105 mmol/L (98-107); Estimated CRCL calculation 90 ml/min; Estimated Glomerular Filt Rate > 60; Glucose 103 mg/dL (65-110); Sodium 137 mmol/L (137-145)
[2025-01-21 22:38] LABS: CRP 0.8 mg/dL (<1.0)
[2025-01-22] VITALS: PULSE 88
[2025-01-22 04:00] VITALS: PULSE 88
[2025-01-22] MEDS: IRON SUCROSE COMPLEX 200 MG, IRON SUCROSE COMPLEX 100 MG in SODIUM CHLORIDE 0.9% IV 250 ML 176.67 MG IVPB (04:35)
[2025-01-22] MEDS: ONDANSETRON INJ 4 MG/2 ML VIAL IV PUSH (04:39)
[2025-01-22 05:44] LABS: Basophils Percent Auto 0.5 % (0.2-1.2); Eosinophils Absolute Auto 0.1 K/mm3 (0-0.3); Eosinophils Percent Auto 1.3 % (0-4.4); Hematocrit 28.2 % (37.0-47.0); Immature Granulocyte Absolute 0.03 K/mm3 (0.00-0.031); Immature Granulocyte Percent A 0.4 % (0-0.5); Lymphocytes Absolute Auto 1.53 K/mm3 (0.9-3.2); Lymphocytes Percent Auto 19.2 % (18.3-44.2); Mean Corpuscular HGB Conc 28.4 g/dl (32-36); Mean Corpuscular Hemoglobin 18.5 pg (26-34); Mean Corpuscular Volume 65.3 fl (80-100); Mean Platelet Volume 8.1 fl (7.4-10.4); Monocytes Absolute Auto 0.8 K/mm3 (0.1-0.6); Monocytes Percent Auto 10.1 % (2.6-8.5); Neutrophils Absolute Auto 5.5 K/mm3 (1.3-6.7); Neutrophils Percent Auto 68.5 % (45.5-73.1); Nucleated Red Blood Cells Perc 0.3 % (0.0-0.2); Platelet Count Result 178 k/mm3 (150-375); Red Blood Count 4.32 M/mm3 (4.2-5.4); Red Cell Distribution Width 25.1 % (11.5-14.5)
[2025-01-22 06:00] VITALS: BP 106/80; PULSE 85; RESP 12; TEMP 36.2; O2SAT 100
[2025-01-22 06:18] LABS: Anisocytosis 2+; Hypochromasia 1+; Microcytosis 1+ (NORMAL); Platelet Estimate Adequate (Adequate)
[2025-01-22 06:19] LABS: Schistocytes None Seen
[2025-01-22 08:00] VITALS: PULSE 106
--- NOTE | 2025-01-22 09:08 | P.PNIM_ITS ---
Progress Note: A&P Assessment and Plan (1) Iron deficiency anemia: Code(s): D50.9 - Iron deficiency anemia, unspecified Status: Acute Assessment and Plan: Hemoglobin 5.8 on admission Transfuse 2 units of RBCs 01/21 Total iron deficiency about 1600 mg 400 mg of Venofer now 300 mg of Venofer in a.m. Hemoglobin after transfusion is 8.1, adequate response No signs of acute bleeding She likely has iron deficiency anemia on top of chronic blood loss from internal hemorrhoids, if her hemoglobin continues to drop she will benefit from a surgical consult and CT of abdomen pelvis. (2) Generalized weakness: Code(s): R53.1 - Weakness Status: Acute Assessment and Plan: Likely secondary to above Patient states that she is still able to work out however she feels like she is weaker than she was and No need for PT OT Orthostatic vital signs Telemetry monitoring (3) Anxiety: Code(s): F41.9 - Anxiety disorder, unspecified Status: Acute Assessment and Plan: Patient states that she took herself off anxiety medications Patient's blood pressure could be elevated due to anxiety as the hypertension is intermittent Subjective Date/time seen: 01/22/25 09:08 Interval history: Interval history: Patient is a 39 F with past medical history depression and anxiety came to ED due to high blood pressure, fever and tiredness. 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 Patient report her last blood work was about 7-8 years ago. Patient thinks that she might have internal hemorrhoids but was never confirmed by PCP or GI. She reports for about past 8 to 9 years she has mild bloody bowel movement but never acted upon. Patient never had any EGD or colonoscopy. Denies use of any NSAIDs or gastritis. Patient reports that she has IUD and denies any vaginal bleed. Patient has a history of hypertension but never took any medication. Occasionally she has a headache and was worried about brain cancer. Recently she was not feeling well and went to urgent care and advised to go to ED. Patient received 2 units PRBC. Current hemoglobin is 8.8. GI is consulted.Patient never had fever in the hospital. Review of Systems Review of Systems: 12 systems were reviewed and are negativ e except for as per HPI. Exam Narrative: General: well appearing, appears stated age. HEENT: normocephalic, atraumatic. Mucous membranes moist. EOMI, PERRLA, bilateral sclera anicteric, no conjunctival injection. Neck supple without JVD, lymphadenopathy, or bruit. Respiratory: clear to ascultation bilaterally. No rales/rhonic/wheezes. Cardiovascular: Regular rate and rhythm, normal S1-S2 upon ascultation. No murmurs, rubs, or clicks. PMI is nondisplaced, capillary refill less than 3 second. Abdomen: Soft, round, no pulsatile masses, nondistended and nontender. No rebound, no guarding. No CVA tenderness, no hepatosplenomegaly. Bowel sounds present to all four quadrants. No high pitch or tinkling sounds, resonant to percussion. Extremities: No cyanosis, clubbing, or edema present. Pulses are palpable 2/2. Active ROM to all four extremities. Neuro: Alert and orientated x 4. PERRLA. Cranial nerves 2-12 intact without focal deficit. Skin: Warm, dry, and intact, without rash, erythema, or lesion. Psych: pleasant, cooperative, normal speech, normal affect, no hallucinations, no dysarthia Objective Data Vital Signs Vital Signs: Vital Signs - 24 hr 01/21/25 10:48 01/21/25 10:59 01/21/25 12:42 Temperature 98.7 F Pulse Rate 102 H 113 H Respiratory Rate 18 18 Blood Pressure 130/67 Pulse Oximetry 100 100 Oxygen Delivery Room Air 01/21/25 15:13 01/21/25 15:19 01/21/25 15:29 Temperature 98.5 F 98.3 F Pulse Rate 103 H 102 H 100 Respiratory Rate 20 23 H 22 H Blood Pressure 129/66 121/65 120/58 L Pulse Oximetry 100 100 100 Oxygen Delivery 01/21/25 17:39 01/21/25 18:20 01/21/25 18:35 Temperature 98.0 F 98.1 F 97.9 F Pulse Rate 94 91 90 Respiratory Rate 16 16 16 Blood Pressure 124/72 108/66 117/72 Pulse Oximetry 100 100 100 Oxygen Delivery 01/21/25 19:35 01/21/25 20:00 01/21/25 20:35 Temperature 97 F L 97 F L Pulse Rate 94 98 94 Respiratory Rate 20 16 Blood Pressure 110/66 112/68 Pulse Oximetry 98 100 Oxygen Delivery 01/21/25 21:35 01/21/25 22:00 01/21/25 23:08 Temperature 97 F L 97.7 F 97 F L Pulse Rate 92 90 92 Respiratory Rate 16 28 H 16 Blood Pressure 116/76 121/25 L 116/76 Pulse Oximetry 100 99 100 Oxygen Delivery 01/22/25 00:00 01/22/25 04:00 01/22/25 06:00 Temperature 97.2 F L Pulse Rate 88 88 85 Respiratory Rate 12 Blood Pressure 106/80 Pulse Oximetry 100 Oxygen Delivery Intake/Output Intake/Output: Intake & Output 01/19/25 01/20/25 01/21/25 01/22/25 23:59 23:59 23:59 23:59 Intake Total 775 535 Balance 775 535 Meds/Results Medications: Active Medications Generic Name Dose Route Start Last Admin Trade Name Freq PRN Reason Stop Dose Admin Acetaminophen 650 mg 01/21/25 15:29 Acetaminophen 325 Mg Tablet PO Q4H PRN Mild Pain (1-3) or Fever Dextrose 12.5 gm 01/21/25 15:29 Dextrose 50% 25 Gm/50 Ml Syringe IV PUSH PRN PRN Hypoglycemia Protocol Docusate Sodium 100 mg 01/22/25 09:00 Docusate Sodium 100 Mg Capsule PO BID DARIEN Glucagon 1 mg 01/21/25 15:29 Glucagon For Inj 1 Mg Vial IM PRN PRN Hypoglycemia Protocol Glucose 15 gm 01/21/25 15:29 Glucose Oral Gel 15 Gm Of Glucse In 37.5 Gm Tube PO PRN PRN Hypoglycemia Protocol Dextrose 1,000 mls @ 100 mls/hr 01/21/25 15:29 Dextrose 5% 1,000 Ml IVPB PRN PRN Hypoglycemia Protocol Ondansetron HCl 4 mg 01/21/25 15:29 01/22/25 04:39 Ondansetron Inj 4 Mg/2 Ml Vial IV PUSH 4 mg Q4H PRN Administration Nausea Radiology Results: ITS Impressions Chest X-Ray 01/21/25 11:24 IMPRESSION: 1: NO ACUTE CARDIOPULMONARY DISEASE. Chest CTA 01/21/25 14:51 IMPRESSION: 1. No pulmonary embolism or other acute cardiopulmonary disease. Labs Labs: Laboratory Results - last 24 hr 01/21/25 01/21/25 01/21/25 11:29 11:30 11:31 WBC 5.7 RBC 3.60 L Hgb 5.6 L* Hct 22.1 L MCV 61.4 L MCH 15.6 L MCHC 25.3 L RDW 22.5 H Plt Count 198 MPV 8.3 Immature Gran % (Auto) 0.4 Neut % (Auto) 57.8 Lymph % (Auto) 28.5 [place] % (Auto) 12.2 H Eos % (Auto) 0.4 Baso % (Auto) 0.7 Lymph # (Auto) 1.61 [place] # (Auto) 0.7 H Eos # (Auto) 0.0 Baso # (Auto) 0.0 Abs Immat Gran (auto) 0.02 Absolute Neuts (auto) 3.3 Absolute Nucleated RBC 0.000 Band Neutrophils % Not Reportable Nucleated RBC % 0.0 Platelet Estimate Adequate Hypochromasia 2+ Poikilocytosis 1+ Anisocytosis 2+ Microcytosis Target Cells 1+ Tear Drop Cells 1+ Ovalocytes 1+ Acanthocytes (Spur) 1+ Schistocytes 1+ Absolute Retic 0.06 Percent Retic 1.86 Immature Retic Fraction 32.7 H Retic Hgb Content 15.5 L PT 13.3 Cancelled INR 1.0 Cancelled APTT 25.7 Cancelled D-Dimer 1.96 H Cancelled Sodium 136 L Potassium 3.9 Chloride 107 Carbon Dioxide 24 Anion Gap 5 BUN 7 Creatinine 0.69 L Estim Creat Clear Calc Not Reportable Estimated GFR > 60 Glucose 99 Calcium 8.6 Magnesium Cancelled 2.1 Iron 18 L TIBC 416 % Saturation 4 L Transferrin Ferritin 3.42 L Total Bilirubin 0.2 AST 28 ALT 15 Alkaline Phosphatase 60 Lactate Dehydrogenase Troponin I < 0.012 C-Reactive Protein Total Protein 6.3 Albumin 3.6 Lipase 26 Vitamin B12 Folate TSH (Reflex) 1.210 Blood Type Antibody Screen Crossmatch 01/21/25 01/21/25 01/22/25 13:27 21:59 05:35 WBC 8.0 RBC 4.32 Hgb 8.1 L 8.0 L Hct 29.5 L 28.2 L MCV 65.3 L D MCH 18.5 L D MCHC 28.4 L RDW 25.1 H Plt Count 178 MPV 8.1 Immature Gran % (Auto) 0.4 Neut % (Auto) 68.5 Lymph % (Auto) 19.2 [place] % (Auto) 10.1 H Eos % (Auto) 1.3 Baso % (Auto) 0.5 Lymph # (Auto) 1.53 [place] # (Auto) 0.8 H Eos # (Auto) 0.1 Baso # (Auto) 0.0 Abs Immat Gran (auto) 0.03 Absolute Neuts (auto) 5.5 Absolute Nucleated RBC 0.020 H Band Neutrophils % Not Reportable Nucleated RBC % 0.3 H Platelet Estimate Adequate Hypochromasia 1+ Poikilocytosis Anisocytosis 2+ Microcytosis 1+ Target Cells Tear Drop Cells Ovalocytes Acanthocytes (Spur) Schistocytes None seen Absolute Retic Percent Retic Immature Retic Fraction Retic Hgb Content PT INR APTT D-Dimer Sodium 137 Potassium 4.0 Chloride 105 Carbon Dioxide 24 Anion Gap 8 BUN 7 Creatinine 0.70 Estim Creat Clear Calc 90 Estimated GFR > 60 Glucose 103 Calcium 8.8 Magnesium Iron TIBC % Saturation Transferrin 319 Ferritin Total Bilirubin AST ALT Alkaline Phosphatase Lactate Dehydrogenase 150 Troponin I < 0.012 C-Reactive Protein 0.8 Total Protein Albumin Lipase Vitamin B12 585.0 Folate 13.8 TSH (Reflex) Blood Type O Positive Antibody Screen Negative Crossmatch See Detail Quality VTE Prophylaxis VTE prophylaxis: mechanical ordered Hospitalist MIPS Advance Care Plan I have confirmed that the patient's Advanced Care Plan is present, code status is documented, or surrogate decision maker is listed in patient medical record.: Yes Medication Reconciliation I have utilized all available resources to obtain, update and review the patients current medications (includes all prescriptions, OTC, herbals, cannabis, and nutritional supplements).: Yes
[2025-01-22 10:00] LABS: Hematocrit 31.5 % (37.0-47.0); Hemoglobin 8.8 g/dL (12.0-15.0)
[2025-01-22 12:00] VITALS: PULSE 94
--- NOTE | 2025-01-22 14:00 | WPDGICN ---
Assessment and Plan Assessment and plan (1) Iron deficiency anemia: Code(s): D50.9 - Iron deficiency anemia, unspecified Status: Acute Assessment and Plan: no overt gib but needs to rule out gi source she needs to take care of her family at home and now feeling better will arrange egd/colonoscopy jasson, she understands how important is to complete test so we can rule out ulcer or even malignancy. (2) Fever: Code(s): R50.9 - Fever, unspecified Status: Acute Assessment and Plan: no fever in the hospital CTA chest negative (3) HTN (hypertension) with goal to be determined: Code(s): I10 - Essential (primary) hypertension Status: Acute (4) Weight loss: Code(s): R63.4 - Abnormal weight loss Status: Acute (5) Anxiety: Code(s): F41.9 - Anxiety disorder, unspecified Status: Acute (6) Palpitations: Code(s): R00.2 - Palpitations Status: Acute (7) Generalized weakness: Code(s): R53.1 - Weakness Status: Acute GI Consult Note Consult date/time: 01/22/25 14:00 Reason for consult: symptomatic anemia HPI: Lydia Adams is a 39 year old female with no major history other than anxiety with panic attacks, last few months noted that BP has been running high (she wears a watch that can monitor her vitals) but also had fever 103 F, also generalized weakness, shortness of breath and palpitations then came here. Noted to have Hgb 5.6, ferritin 3 (no recent blood work to compare), admitted to hospital and given blood, now up to 8 and feeling better. She has lost about 15 lb because lack of appetite last few months, denies change bowel habits, no overt gib, no melena. She has IUD and does not have periods. She is feeling better and now would like to go home and complete scopes as outpatient. CTA chest normal. Review of Systems Constitutional: Constitutional: Reports chills and Reports fatigue Eyes: Eyes: Denies blurry vision ENT: Reports Normal hearing present Cardiovascular: Cardiovascular: Denies chest pain Respiratory: Respiratory: Reports dyspnea on exertion Gastrointestinal: Gastrointestinal: Reports abdominal pain, Denies melena, Denies nausea and Denies vomiting Genitourinary: Genitourinary: Denies dysuria Musculoskeletal: Musculoskeletal: Denies neck pain Integumentary/Breasts: Skin/Breast: Denies rash Neurologic: Denies Abnormal speech present Psychiatric: Psychiatric: Denies behavioral changes [facility], [facility] Past Medical History Medical History (Updated 01/22/25 @ 14:03 by Michael Mckeon MD) Weight loss HTN (hypertension) with goal to be determined Fever Family History Family History (Updated 01/21/25 @ 17:49 by Lalitha Beckwith RN) Father Hypertension Mother Heart disease Social History Social History Smoking status: Never smoker Alcohol intake: former Drinks per week: 2 Substance use: never Do You Feel Safe in your Home?: Yes Lack of Transportation: No Lack of Food: Never True Current Housing: I Have Housing Concerned About Future Housing: No Difficulty Paying Gas/Electric Bills: No Difficulty Paying for Meds: No Currently Unemployed: No Education: Don't Know Difficulty w/ Childcare or Family Care: No Spiritual care concerns: No Meds Home Medications and Allergies Home Medications ?Medication ?Instructions ?Recorded ?Confirmed ?Type No Home Medications 01/21/25 01/21/25 History Allergies Allergy/AdvReac Type Severity Reaction Status Date / Time No Known Allergies Allergy Verified 01/21/25 17:55 Vital Signs Vital Signs - 24 hr 01/21/25 15:13 01/21/25 15:19 01/21/25 15:29 Temperature 98.5 F 98.3 F Pulse Rate 103 H 102 H 100 Respiratory Rate 20 23 H 22 H Blood Pressure 129/66 121/65 120/58 L Pulse Oximetry 100 100 100 Oxygen Delivery 01/21/25 17:39 01/21/25 18:20 01/21/25 18:35 Temperature 98.0 F 98.1 F 97.9 F Pulse Rate 94 91 90 Respiratory Rate 16 16 16 Blood Pressure 124/72 108/66 117/72 Pulse Oximetry 100 100 100 Oxygen Delivery 01/21/25 19:35 01/21/25 20:00 01/21/25 20:35 Temperature 97 F L 97 F L Pulse Rate 94 98 94 Respiratory Rate 20 16 Blood Pressure 110/66 112/68 Pulse Oximetry 98 100 Oxygen Delivery 01/21/25 21:35 01/21/25 22:00 01/21/25 23:08 Temperature 97 F L 97.7 F 97 F L Pulse Rate 92 90 92 Respiratory Rate 16 28 H 16 Blood Pressure 116/76 121/25 L 116/76 Pulse Oximetry 100 99 100 Oxygen Delivery 01/22/25 00:00 01/22/25 04:00 01/22/25 06:00 Temperature 97.2 F L Pulse Rate 88 88 85 Respiratory Rate 12 Blood Pressure 106/80 Pulse Oximetry 100 Oxygen Delivery 01/22/25 08:00 01/22/25 08:00 Temperature Pulse Rate 106 H Respiratory Rate Blood Pressure Pulse Oximetry Oxygen Delivery Room Air Results Labs 01/22/25 09:53 01/21/25 21:59 Labs: Short CBC 01/21/25 01/22/25 01/22/25 Range/Units 21:59 05:35 09:53 WBC 8.0 (4.5-10.0) K/mm3 Hgb 8.1 L 8.0 L 8.8 L (12.0-15.0) g/dL Hct 29.5 L 28.2 L 31.5 L (37.0-47.0) % Plt Count 178 (150-375) k/mm3 BMP 01/21/25 21:59 Sodium 137 Potassium 4.0 Chloride 105 Carbon Dioxide 24 BUN 7 Creatinine 0.70 Glucose 103 Calcium 8.8 Cardiac Enzymes 01/21/25 Range/Units 13:27 Troponin I < 0.012 (0.000-0.034) ng/mL
--- NOTE | 2025-01-22 16:15 | P.DS_ITS ---
DS: Admitting Diagnosis Discharge Date 01/22/2025 Admitting Diagnosis Anemia DS: Discharge Diagnosis Discharge Diagnosis (1) Iron deficiency anemia: Code(s): D50.9 - Iron deficiency anemia, unspecified Status: Acute Assessment and Plan: Please refer to hospital course for brief summary Hemoglobin 5.8 on admission Transfuse 2 units of RBCs 01/21 Total iron deficiency about 1600 mg 400 mg of Venofer now 300 mg of Venofer in a.m. Hemoglobin after transfusion is 8.1, adequate response No signs of acute bleeding She likely has iron deficiency anemia on top of chronic blood loss from internal hemorrhoids, if her hemoglobin continues to drop she will benefit from a andreea gical consult and CT of abdomen pelvis. (2) Generalized weakness: Code(s): R53.1 - Weakness Status: Acute Assessment and Plan: Likely secondary to above Patient states that she is still able to work out however she feels like she is weaker than she was and September. No need for PT OT Orthostatic vital signs Telemetry monitoring (3) Anxiety: Code(s): F41.9 - Anxiety disorder, unspecified Status: Acute Assessment and Plan: Patient states that she took herself off anxiety medications Patient's blood pressure could be elevated due to anxiety as the hypertension is intermittent DS: Summary Hospital Course Hospital Course: Patient is a 39 F with past medical history depression and anxiety came to ED due to high blood pressure, fever and tiredness. 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 Patient report her last blood work was about 7-8 years ago. Patient thinks that she might have internal hemorrhoids but was never confirmed by PCP or GI. She reports for about past 8 to 9 years she has mild bloody bowel movement but never acted upon. Patient never had any EGD or colonoscopy. Denies use of any NSAIDs or gastritis. Patient reports that she has IUD and denies any vaginal bleed. Patient has a history of hypertension but never took any medication. Occasionally she has a headache and was worried about brain cancer. Recently she was not feeling well and went to urgent care and advised to go to ED. Patient received 2 units PRBC. Current hemoglobin is 8.8. GI is consulted.Patient never had fever in the hospital. Patient declined to perform CT and wanted to do as a outpatient. GI evaluated the patient and since no overt GI bleeding but needs to rule out GI source. Since patient has to take care of her family they agreed to arrange EGD/colonoscopy jasson as outpatient. Will order CBC and patient is to follow up the results with PCP On the day of discharge, the patient was seen and examined. Vital signs were stable. Physical exam were stable and labs were reviewed at length. Discharge instructions, medications, and follow-up appointments were discussed with the patient at length and all day questions were answered. ER warnings were given. Status at Discharge Cognitive/behavioral status at discharge: Stable Time Spent with Patient Time attestation: Total time spent providing and/or coordinating discharge services: 45 minute Exam Narrative: General: well appearing, appears stated age. HEENT: normocephalic, atraumatic. Mucous membranes moist. EOMI, PERRLA, bilateral sclera anicteric, no conjunctival injection. Neck supple without JVD, lymphadenopathy, or bruit. Respiratory: clear to ascultation bilaterally. No rales/rhonic/wheezes. Cardiovascular: Regular rate and rhythm, normal S1-S2 upon ascultation. No murmurs, rubs, or clicks. PMI is nondisplaced, capillary refill less than 3 second. Abdomen: Soft, round, no pulsatile masses, nondistended and nontender. No rebound, no guarding. No CVA tenderness, no hepatosplenomegaly. Bowel sounds present to all four quadrants. No high pitch or tinkling sounds, resonant to percussion. Extremities: No cyanosis, clubbing, or edema present. Pulses are palpable 2/2. Active ROM to all four extremities. Neuro: Alert and orientated x 4. PERRLA. Cranial nerves 2-12 intact without focal deficit. Skin: Warm, dry, and intact, without rash, erythema, or lesion. Psych: pleasant, cooperative, normal speech, normal affect, no hallucinations, no dysarthia DS: Data Data Completed and Pending Labs on day of discharge: Labs from last 24 hours 01/22/25 01/22/25 01/21/25 09:53 05:35 21:59 WBC 8.0 RBC 4.32 Hgb 8.8 L 8.0 L 8.1 L Hct 31.5 L 28.2 L 29.5 L MCV 65.3 L D MCH 18.5 L D MCHC 28.4 L RDW 25.1 H Plt Count 178 MPV 8.1 Immature Gran % (Auto) 0.4 Neut % (Auto) 68.5 Lymph % (Auto) 19.2 [place] % (Auto) 10.1 H Eos % (Auto) 1.3 Baso % (Auto) 0.5 Lymph # (Auto) 1.53 [place] # (Auto) 0.8 H Eos # (Auto) 0.1 Baso # (Auto) 0.0 Abs Immat Gran (auto) 0.03 Absolute Neuts (auto) 5.5 Absolute Nucleated RBC 0.020 H Band Neutrophils % Not Reportable Nucleated RBC % 0.3 H Platelet Estimate Adequate Hypochromasia 1+ Anisocytosis 2+ Microcytosis 1+ Schistocytes None seen Sodium 137 Potassium 4.0 Chloride 105 Carbon Dioxide 24 Anion Gap 8 BUN 7 Creatinine 0.70 Estim Creat Clear Calc 90 Estimated GFR > 60 Glucose 103 Calcium 8.8 C-Reactive Protein 0.8 Vitamin B12 Folate Blood Type Antibody Screen Crossmatch 01/21/25 13:27 WBC RBC Hgb Hct MCV MCH MCHC RDW Plt Count MPV Immature Gran % (Auto) Neut % (Auto) Lymph % (Auto) [place] % (Auto) Eos % (Auto) Baso % (Auto) Lymph # (Auto) [place] # (Auto) Eos # (Auto) Baso # (Auto) Abs Immat Gran (auto) Absolute Neuts (auto) Absolute Nucleated RBC Band Neutrophils % Nucleated RBC % Platelet Estimate Hypochromasia Anisocytosis Microcytosis Schistocytes Sodium Potassium Chloride Carbon Dioxide Anion Gap BUN Creatinine Estim Creat Clear Calc Estimated GFR Glucose Calcium C-Reactive Protein Vitamin B12 585.0 Folate 13.8 Blood Type O Positive Antibody Screen Negative Crossmatch See Detail Imaging Radiologist's impression: ITS Impressions Chest X-Ray 01/21/25 11:24 IMPRESSION: 1: NO ACUTE CARDIOPULMONARY DISEASE. Chest CTA 01/21/25 14:51 IMPRESSION: 1. No pulmonary embolism or other acute cardiopulmonary disease. Additional Comments Additional comments: ITS Impressions Chest X-Ray 01/21/25 11:24 IMPRESSION: 1: NO ACUTE CARDIOPULMONARY DISEASE. Chest CTA 01/21/25 14:51 IMPRESSION: 1. No pulmonary embolism or other acute cardiopulmonary disease. Discharge Plan Discharge Attending physician on discharge: Bello Smyth Consulting providers: Michael Mckeon Discharging Clinician: Bello Smyth Anticipated Discharge Date/Time: 01/22/25 16:19 Patient Disposition: Home Activity: as tolerated Diet: bland Discharge Instructions: In case of shortness of breath, palpitation or chest pain please seek immediate medical care can be due to anemia. 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 Record and bring into your doctor for review. Call your doctor if your blood pressure is greater than 180/110 or less than 90/45. Walk with cane or other assist device. Take precautions to avoid falls. Rise slowly from a lying or sitting position. Pause before standing or walking. Contact your doctor or call 911 and come to the Emergency Room if you have any type of trauma, lightheadedness with standing or other worrisome symptoms. Avoid NSAIDs (ibuprofen, naproxen, Aleve). Tylenol is safe to take. Follow-up with your primary care provider in 1-2 weeks. Please call for appointment. Thank you for using [facility] for your health care needs. Patient Instructions: Antibiotic Form Patient Language: Macedonian Stand Alone Forms: General Discharge Information Follow-up/Referrals: Pau,SYBIL Richardson [Primary Care Provider] - Michael Mckeon MD [Physician] - Discharge Medications: New pantoprazole [Protonix] 40 mg tablet,delayed release (DR/EC) 40 mg PO QAM 56 Days Qty: 56 0RF Other Ambulatory Orders: Complete Blood Count no Diff (Routine) Timeframe: 1 Week Location: Determined by Patient Ordered By: Bello Smyth Date of admission: 01/21/25 15:30 Primary Care Provider: PauDebra Admitting Provider: Bello Smyth Attending physician on admission: Bello Smyth Condition: Stable
--- NOTE | 2025-01-22 17:03 | PC.NURSE ---
Addendum entered by Akosua Freeman RN 01/22/25 17:06: Rylie COLLAZO, not Rylie FOSTER. Original Note: On 01/22/25, the CENTRIFUGAL SUPERVISOR, [Rylie RN ], provided care and completed [facility] documentation on this patient. I have reviewed the CENTRIFUGAL SUPERVISOR's documentation and agree with the findings.
== END 2025-01-22 16:42 | disposition home or self-care (01) ==
LOC: ANHED 15:27 → ANH3MEDSUR 16:46
PROVIDERS: Emergency Medicine; Nurse Practitioner Gerontology; Admitting Provider General Practice; Emergency Provider Physician Assistant; PCP Physician Assistant; Visit Provider General Practice
DX: D50.9 Iron deficiency anemia, unspecified (principal); R53.1 Weakness; F41.0 Panic disorder [episodic paroxysmal anxiety]; R50.9 Fever, unspecified; R00.2 Palpitations; I10 Essential (primary) hypertension; Z97.5 Presence of (intrauterine) contraceptive device
CPT/HCPCS: 36415; 36430; 71046; 71275; 80048; 80053; 82607; 82728; 82746; 83540; 83550; 83615; 83690; 83735; 84443; 84466; 84484; 85014; 85018; 85025; 85046; 85380; 85610; 85730; 86140; 86850; 86900; 86901; 86923; 93005; 96365; 96366; 99285; A9270; G0378; J1756; J2405; J7050; P9016; Q9967

== ENCOUNTER 2025-01-26 02:05 | Day surgery (SDC) | payer OTHER, SELFPAY ==
[2025-01-25 09:19] VITALS: BMI 23.4
--- OUTSIDE RECORDS SUMMARY | 2025-01-26 02:09 | XMS_ITS | Clinical Summary ---
Author Organization [facility] Address [address] [place] [address] Care Team Providers Care Manager Of Selection And Assessment Name Role Phone Luis Alfredo Lau MD Primary Care Provider [phone] Allergies Active Allergy Reactions Criticality Noted Date Comments Metronidazole Anxiety High 08/30/2019 Medications levonorgestreL 21 mcg/24 hours (8 yrs) 52 mg intrauterine device by Intrauterine route. Active sertraline (ZOLOFT) 100 mg tablet Take 100 mg by mouth daily. Active LORazepam (ATIVAN) 0.5 mg tabletIndications :Intrauterine contraceptive device threads lost, initial encounter Take 1 Tablet (0.5 mg) by mouth one time for 1 dose. 1 Tablet 02/21/20 23 Active Active Problems Problem Noted Date Diagnosed Date IUD (intrauterine device) in place - Mirena 08/12 Overview (09/05/2016): Due for removal August 2021 LGSIL on Pap smear of cervix 05/11/2015 History of delivery 05/11/2015 Resolved Problems Problem Noted Date Diagnosed Date Resolved Date Postoperative follow-up 12/11/201507/12 Overview (12/11/2015): Incision check post op RLTCS /11/13/2015 08/01/2016 Desires (vaginal after ) trial 08/28/2015 08/01/2016 Declines (vaginal after ) trial 05/11/2015 08/28/2015 Supervision of other normal , antepartum 05/10/2015 08/01/2016 Nausea and vomiting during p regnancy prior to 22 weeks gestation 05/10/2015 08/01/2016 MSAFP (maternal serum alpha-fetoprotein) high 11/29/19 09 05/11/2009 Single umbilical artery 11/28/200808/2008 Subchorionic hematoma 11/28/20082008 Supervision of high-risk pre gnancy of young primigravida 11/28/2008 05/11/2009 Supervision of normal first 11/01/2008 11/28/2008 Immunizations Immunization Administration Dates Next Due (ADACEL/BOOSTRIX)(10 YR UP) TDAP VACCINE, 0.5ML, IM 09/11/2015,08/14/2009 Influenza Seasonal Unspecified Formulation IM Influenza Vaccine Split 3+ Yrs IM 06/08/2015 Family History Medical History Relation Name Comments Healthy Brother 1 Healthy Brother 2 Hypertension Father Healthy Mother Healthy Sister Healthy Son Breast Cancer Neg Hx Colon Cancer Neg Hx Ovarian Cancer Neg Hx Relation Name Status Comments Brother 1 Alive Brother 2 Alive Father Alive Mother Alive Sister Alive Son Alive Social History Tobacco Use Types Packs/Day Years Used Date Smoking Tobacco: Never Smokeless Tobacco: Never Alcohol Use Standard Drinks/Week Comments Yes 0 (1 standard drink = 0.6 oz pur e alcohol) Socially Comments No Sex and Gender Information Value Date Recorded Sex Assigned at Not on file 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 Gender Identity Not on file Sexual Orientation Not on file Occupation Industry Job Start Date Job End Date Not on file Not on file Not on file Not on file Last Filed Vital Signs Vital Sign Reading Time Taken Comments Blood Pressure 118/70 04/01/2023 10:02 AM CDT Pulse 66 11/17/2015 7:00 AM CDT Temperature 36.8 C (98.3 F) 11/17/2015 7:00 AM CDT Respiratory Rate 16 11/17/2015 7:00 AM CDT Oxygen Saturation 100% 11/16/2015 8:05 PM CDT Inhaled Oxygen Concentration - - Weight 76.7 kg (169 lb 3.2 oz) 04/01/2023 10:02 AM CDT Height 170.2 cm (5' 7) 04/01/2023 10:02 AM CDT Body Mass Index 26.5 04/01/2023 10:02 AM CDT Plan of Treatment Health Maintenance Due Date Last Done Comments HEPATITIS B VACCINES (1 of 3 - 19+ 3-dose series) 2004 INFLUENZA VACCINE (#1) 2024 06/08/2015, 2012 Preventative Visit- Commercial 08/11/2024 02/20/2023, 08/01/2016, 03/23/2013 DTAP/TDAP/TD VACCINES (3 - Td or Tdap) 09/11/2025 09/11/2015, 08/14/2009 PAP SMEAR 02/20/2026 02/20/2023, 07/12, 04/13/2015, Additional history exists CERVICAL CANCER SCREENING 02/21/2028 HPV/Cotest (21-29) 02/21/2028 02/20/2023, 1 10/02/2015, 04/13/2015, Additional history exists HPV/Cotest (30-65) 02/21/2028 02/20/2023, 1 10/02/2015, 04/13/2015, Additional history exists HPV VACCINES Aged Out No longer eligi ble based on patient's age to complete this topic Procedures Procedure Name Priority Date/Time Associated Diagnosis Comments CERV/VAG CYTO AGE BASED SCREEN PAP Routine 02/20/2023 11:12 AM CDT Well woman exam with routine gynecological exam Screening for cervical cancer Screening for malignant neoplasm of cervix from Last 3 Months or Most Recently Relevant to Health Maintenance Results * (ABNORMAL) CERV/VAG CYTO AGE BASED SCREEN PAP (02/20/2023 11:12 AM CDT) COMMENT (PAP): [facility] Comment: This order for age-based cervical cancer and STI screening follows ACOG guidelines(PB 168, 140, EKY384). See individual assays for performing site location. CLINICAL INFORMATION [facility] Comment:None given LAST MENSTRUAL PERIOD [facility] Comment:NONE GIVEN PREV PAP: [facility] Comment:NONE GIVEN PREV BX: [facility] [place] Comment:NONE GIVEN SOURCE [facility] [place] Comment:Endocervix ADEQUACY: [facility] Comment: Satisfactory for evaluation. Endocervical/transformation zone component present. Age and/or menstrual status not provided GENERAL CATEGORIZATION: (A) [facility] [place] Comment:Cytology Results: Ep ithelial Cell Abnormality PAP INTERP (A) [facility] [place] Comment: Atypical Squamous Cells of Undetermined Significance (ASC-US) COMMENT (PAP TEST) [facility] Comment: This Pap test has been evaluated with computer assisted technology. COOKER SODA: [facility] Comment: YQ, CT(ASCP) CT screening location: [place] [address] [place] [address] PATHOLOGIST [facility] Comment: Leandro Goss M.D., Board Certified in Anatomic Pathology and Cytopathology. (electronic signature) EXPLANATORY NOTE [facility] Comment: EXPLANATORY NOTE: The Pap is a screening test for cervical cancer. It is not a diagnostic test and is subject to false negative and false positive results. It is most reliable when a satisfactory sample, regularly obtained, is submitted with relevant clinical findings and history, and when the Pap result is evaluated along with historic and current clinical information. HPV E6/E7 Detected( A) Not Detected [facility] Comment: Methodology: Appliance Sales Associate-Mediated Amplification This assay detects E6/E7 viral messenger RNA (mRNA) from 14 high-risk HPV types (16,18,31,33,35,39,45,51,52,56,58,59,66,68). Cervical sources are required for HPV testing. If a vaginal source from a patient who has had a total hysterectomy with removal of cervix was submitted, please contact the testing laboratory for alternative testing options. For additional information, please refer to http://education.En[employer]/faq/LAZ981u4 (This link if provided for information/ educational purposes only.) Test Performed at: [facility] [address] [place] [address] Irene Sinclair MD SL Genital SWAB OF ENDOCERVIX / Unknown 02/20/2023 11:12 AM CDT 02/20/2023 2:04 PM CDT us Juani Richardson MD PATHOLOGY/CYTOLOGY ORDERABLES Fi nal Result [facility] [phone] [facility] [address] [place] [address] from Last 3 Months or Most Recently Relevant to Health Maintenance Insurance [employer] [facility] [address] [id number] Advance Directives For more information, please contact: [phone] * Full Code (Latest Code Status on File) Date Activated Date Inactivated Comments 11/13/2015 6:17 PM 11/17/2015 1:17 PM * Full Code Date Activated Date Inactivated Comments 11/13/2015 12:20 PM 11/13/2015 6:16 PM Care Teams Manager Of Selection And Assessment Relationship Specialty Start Date End Date Luis Alfredo Lau MD PCP - General 02/17/08
--- OUTSIDE RECORDS SUMMARY | 2025-01-26 02:09 | XMS_ITS | Encounter Summary ---
Author Organization [facility] Address [address] [place] [address] Care Team Providers Care Material Carrier Name Role Phone Luis Alfredo Lau MD Primary Care Provider [phone] Encounter Details Date Type Department Care Team (Latest Contact Info) Description 2009 Outpatient Historical [facility] Day, Juani Fields MD [address] [place] [address] Elderly Multigravida with Antepartum Condition or Complication Social History Tobacco Use Types Packs/Day Years Used Date Smoking Tobacco: Never Alcohol Use Standard Drinks/Week Comments No 0 (1 standard drink = 0.6 oz pur e alcohol) Comments Yes Sex and Gender Information Value Date Recorded Sex Assigned at Not on file 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
--- OUTSIDE RECORDS SUMMARY | 2025-01-26 02:09 | XMS_ITS | Data Portability ---
Author Organization [facility], Main Office Address [address] [place] [address] Assessment No assessment recorded. Plan of Treatment Reminders Order Date Submit Date Provider Last Modified By Organization Details Last Modified Time Details Appointments None recorded. Lab None recorded. Referral None recorded. Procedures None recorded. Surgeries None recorded. Imaging None recorded. Medication Orders neomycin 3.5 mg-polymyxi n 10,000 unit-hydroc ort 10 mg/mL eye drop,susp 2022 023 [facility] [facility] [id number], [address], 3 09:42:53 sertraline 50 mg tablet 2022 023 [facility] [id number] [address] [place] [address] [place], [address], 3 09:42:53 Patient TargetsNo targets recorded. Patient InstructionsNo instructions recorded. Reason for Referral None Reported. Problems Name Problem SNOMED Code Status Onset Date Resolution Date Notes Provider Name and Address Organization Details Recorded Time Generalized anxiety disorder 30294257 Active 2021 Not Available [facility] 3 20:01:48 Dyssomnia 27917796 Active 2021 Not Available [facility] 3 20:01:48 Anxiety 90340189 Active 2017 Not Available [facility] 3 20:01:48 Conjunctivitis 0791529 Active 2022 CHANTAL Prakash [address] [facility] [address], [place], [address] , [facility] 3 09:42:13 Problem Notes None recorded. Procedures Surgical History Date Name Laterality Status Provider Name and Address Organization Details Recorded Time completed Not Available [facility] 0 10/09/2022 20:01:30 completed Not Available [facility] 0 10/09/2022 20:01:30 Imaging Results None recorded. Procedure Notes None recorded. Medical Equipment None Reported. Allergies Allergen ID Allergen Name Allergen Category Reaction Reaction Severity Criticality Documentation Date Start Date Code Code System Note Provider Name and Address Organization Details Recorded Time [address] clindamyc in Not available other Not available Not available 10/09/2022 2582 RxNorm incre ased anxie ty Not Available [facility] 3 20:02:37 Medications Name Sig Start Date [...] cm 80 /min 16 /min 97.9 [degF] 80776.7 8 g 120 mm[Hg] 80 mm[Hg] Not Available [facility] 3 20:01:34 Date Recorded Body height Oxygen saturation Oxygen saturation in Arterial blood by Pulse oximetry Heart rate Respiratory rate Body temperature Systolic blood pressure Diastolic blood pressure Provider Name and Address Organization Details Last Updated DateTime 2 167.64 cm 97 % 97 % 70 /min 16 /min 98 [degF] 118 mm[Hg] 68 mm[Hg] Not Available [facility] 3 20:01:34 Date Recorded Body height Body temperature Body mass index (BMI) Body weight Respiratory rate Oxygen saturation Oxygen saturation in Arterial blood by Pulse oximetry Heart rate Systolic blood pressure Diastolic blood pressure Provider Name and Address Organization Details Last Updated DateTime 3 167.64 cm 97.5 [degF] 27.5 kg/m2 73758.5 g 16 /min 99 % 99 % 64 /min 118 mm[Hg] 78 mm[Hg] TERA Funes [place] [facility] 3 09:16:07 Social History Question Answer Notes LastModified by Organizat ion Details LastModified Time Tobacco Smoking Status Never Smoker Not Available [facility] 10/09/2022 20:01:25 Do You Have An Advance Directive? Yes [id number] Information not available 10/09/2022 What Is Your Level Of Caffeine Consumption? Heavy [id number].[id number] 026 Information not available 10/09/2022 In The 14 Days Before Symptom Onset, Have You Had Close Contact With A Laboratory-confirm ed COVID-19 While That Case Was Ill? No [id number].[id number] 026 Information not available 10/09/2022 In The 14 Days Before Symptom Onset, Have You Had Close Contact With A Person Who Is Under Investigation For COVID-19 While That Person Was Ill? No [id number] 026 Information not available 10/09/2022 What Type Of Diet Are You Following? REGULAR MIGRATION.[id number] 026 Information not available 10/09/2022 What Is The Highest Grade Or Level Of School You Have Completed Or The Highest Degree You Have Received? BF24555-1 MIGRATION.[id number] 026 Information not available 10/09/2022 Have There Been Any Changes To Your Family Or Social Situation? No [id number] 026 Information not available 10/09/2022 Are There Any Guns Present In Your Home? Yes [id number].[id number] 026 Information not available 10/09/2022 Do You Use Insect Repellent Routinely? No MIGRATION.6502677 026 Information not available 10/09/2022 Have You Ever Been Counseled For Unhealthy Alcohol Use? No [id number].[id number] 026 Information not available 10/09/2022 What Is Your Relationship Status? Single MIGRATION.8765209 026 Information not available 10/09/2022 Do You Use Your Seat Belt Or Car Seat Routinely? Yes [id number].[id number] 026 Information not available 10/09/2022 Do You Have Smoke And Carbon Monoxide Detectors In Your Home? Yes [id number].5364946 026 Information not available 10/09/2022 Do You Use Sunscreen Routinely? Yes MIGRATION.7902411 026 Information not available 10/09/2022 Has Tobacco Cessation Counseling Been Provided? No MIGRATION.7058769 026 Information not available 10/09/2022 Have You Recently Traveled Abroad? No MIGRATION.9993965 026 Information not available 10/09/2022 Do You Have Any Dietary Restrictions? No MIGRATION.3432928 026 Information not available 10/09/2022 Sex: Unknown Functional Status Question Answer Note LastModified by Organizat ion Details LastModified Time Do you use any illicit or recreational drugs? No MIGRATION.[id number] 4942 Information not available 10/09/2022 Do you or have you ever used any other forms of tobacco or nicotine? No MIGRATION.984198 4028 Information not available 10/09/2022 What is your level of alcohol consumption? Occasional MIGRATION.826640 9201 Information not available 10/09/2022 Are you currently employed? 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 Moderate MIGRATION.555337 6314 Information not available 10/09/2022 Mental Status None recorded. Family History Relationship Description Onset Age of this Age Resolved Age Notes LastModified by Organization Details LastModified Time Father Hypertensive disorder [id number] Not available 10/09/2022 20:01:30 Medical History Condition Response BACK / NECK PROBLEMS Y HEADACHES/MIGRAINES Y ANXIETY DISORDER Y Gynecological History Statement/Question Response Menses Monthly N Abnormal Pap N Date of Last Pap 08/11/2015 Current Control Method IUD Sexually Active? Y Obstetrics History GPAL:G 2 P 0 0 0 2 Type Value Living 2 Total 2 Past Encounters Encounter ID Performer Location Encounter Start Date Encounter Closed Date Diagnosis/Indication Diagnosis SNOMED-CT Code Diagnosis ICD10 Code Diagnosis Note [id number] CHANTAL Prakash [facility] [address] [place] [address] 11/12/2021 00:00:00 12/08/2021 13:24:02 [id number] CHANTAL Prakash [facility] [address] [place] [address] 05/13/2022 00:00:00 05/13/2022 10:56:05 [id number] CHANTAL Prakash [facility] [address] [place] [address] 07/24/2023 09:09:53 07/24/2023 09:42:05 Adult health examination 501040239 Z00.01 well exam completed. pt declines labs at this time. Generalize d anxiety disorder 28490962 F41.1 refill on sertraline 50mg daily. Conjunctivitis 1629868 H 10.9 rx for neomycin drops as directed Health Concerns Section Related Observation LastModified by Organization Detai ls LastModified Time None Recorded Concern Status LastModified by Organization Details LastModified Time None Recorded Advance Directives Directive Y: Payers Insurance Date Sequence Insurance Name Policy Number Policy Carroll Covered Member ID Carroll Member ID Guarantor Name 08/07/2023 1 [facility] [id number] Lydia Adams [id number] Lydia Adams 07/23/2023 1 [facility] [id number] Lydia Adams [id number] Lydia Adams Notes Date Note Type Note [...] apathy; maintaining functionality;anxie ty;insomnia;sleep disturbances Not Available [facility] 12/08/2021 13:24:02 05/13/2022 text/html Anxiety/Depressi onR eported [...] good; no apathy; maintaining functionality Not Available [facility] 05/13/2022 10:56:05 07/24/2023 text/html Anxiety/Depressi onR eported [...] no shortness of breath Wellness CHANTAL Prakash [address] [place] [address] [address], [place], [address], [place] [facility] 08/07/2023 15:44:16 OBGyn Episode No OBEpisode recorded.
--- OUTSIDE RECORDS SUMMARY | 2025-01-26 02:09 | XMS_ITS | Encounter Summary ---
Author Organization [facility] Address [address] [place] [address] Care Team Providers Care Industrial Photographer Name Role Phone Luis Alfredo Lau MD Primary Care Provider [phone] Encounter Details Date Type Department Care Team (Latest Contact Info) Description 12/24/2008 Outpatient Historical [facility] Juani Richardson MD [address] [place] [address] Elderly Multigravida with Antepartum Condition or Complication Social History Tobacco Use Types Packs/Day Years Used Date Smoking Tobacco: Never Alcohol Use Standard Drinks/Week Comments No 0 (1 standard drink = 0.6 oz pur e alcohol) Comments Yes Sex and Gender Information Value Date Recorded Sex Assigned at Not on file 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 Gender Identity Not on file Sexual Orientation Not on file documented as of this encounter Plan of Treatment Not on file documented as of this encounter Procedures Procedure Name Priority Date/Time Associated Diagnosis Comments US OB LTD 1 OR MORE FETUSES Timed Study 01/05/2009 3:43 PM CDT documented in this encounter Results * US OB LTD 1 OR MORE FETUSES (01/05/2009 3:43 PM CDT) Anatomical Region Laterality Modality Pelvis Other Narrative 01/05/2009 3:43 PM CDT FINAL - Order Information Only Procedure Note Owen Brewer RN - 08/29/2015 FINAL - Order Information Only us Juani Richardson MD US ORDERABLES Final Result documented in this encounter Visit Diagnoses Diagnosis Elderly multigravida with antepartum condition or complication documented in this encounter Care Teams Industrial Photographer Relationship Specialty Start Date End Date Luis Alfredo Lau MD PCP - General 02/17/08 documented as of this encounter
--- OUTSIDE RECORDS SUMMARY | 2025-01-26 02:09 | XMS_ITS | Encounter Summary ---
Author Organization [facility] Address [address] [place] [address] Care Team Providers Care Pin Sorter And Bagger Name Role Phone Luis Alfredo Lau MD Primary Care Provider [phone] Encounter Details Date Type Department Care Team (Latest Contact Info) Description 01/16/2009 Outpatient Historical [facility], MAIN , Juani Fields MD [address] [place] [address] Supervision of High-Risk of Young Primigravida Social History Tobacco Use Types Packs/Day Years Used Date Smoking Tobacco: Never Alcohol Use Standard Drinks/Week Comments No 0 (1 standard drink = 0.6 oz pur e alcohol) Comments Yes Sex and Gender Information Value Date Recorded Sex Assigned at Not on file 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
--- OUTSIDE RECORDS SUMMARY | 2025-01-26 02:09 | XMS_ITS | Encounter Summary ---
Author Organization [facility] Address [address] [place] [address] Care Team Providers Care Senior Project Engineer Name Role Phone Luis Alfredo Lau MD Primary Care Provider [phone] Encounter Details Date Type Department Care Team (Latest Contact Info) Description 01/25/2009 Outpatient Historical [facility] Juani Richardson MD [address] [place] [address] Elderly Multigravida with Antepartum Condition or Complication Social History Tobacco Use Types Packs/Day Years Used Date Smoking Tobacco: Never Alcohol Use Standard Drinks/Week Comments No 0 (1 standard drink = 0.6 oz pur e alcohol) Comments Yes Sex and Gender Information Value Date Recorded Sex Assigned at Not on file 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 Gender Identity Not on file Sexual Orientation Not on file documented as of this encounter Plan of Treatment Not on file documented as of this encounter Procedures Procedure Name Priority Date/Time Associated Diagnosis Comments US OB LTD 1 OR MORE FETUSES Timed Study 02/01/2009 8:33 AM CDT documented in this encounter Results * US OB LTD 1 OR MORE FETUSES (02/01/2009 8:33 AM CDT) Anatomical Region Laterality Modality Pelvis Other Narrative 02/01/2009 8:33 AM CDT FINAL - Order Information Only Procedure Note Owen Brewer RN - 08/29/2015 FINAL - Order Information Only us Juani Richardson MD US ORDERABLES Final Result documented in this encounter Visit Diagnoses Diagnosis Elderly multigravida with antepartum condition or complication documented in this encounter Care Teams Senior Project Engineer Relationship Specialty Start Date End Date Luis Alfredo Lau MD PCP - General 02/17/08 documented as of this encounter
--- OUTSIDE RECORDS SUMMARY | 2025-01-26 02:09 | XMS_ITS | Encounter Summary ---
Author Organization [facility] Address [address] [place] [address] Care Team Providers Care Analysis Engineer Name Role Phone Luis Alfredo Lau MD Primary Care Provider [phone] Encounter Details Date Type Department Care Team (Latest Contact Info) Description 02/26/2009 Outpatient Historical [facility] Day, Juani Fields MD [address] [place] [address] Elderly Multigravida with Antepartum Condition or Complication; Other Current Maternal Conditions Classifiable Elsewhere, Antepartum Social History Tobacco Use Types Packs/Day Years Used Date Smoking Tobacco: Never Alcohol Use Standard Drinks/Week Comments No 0 (1 standard drink = 0.6 oz pur e alcohol) Comments Yes Sex and Gender Information Value Date Recorded Sex Assigned at Not on file 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 Gender Identity Not on file Sexual Orientation Not on file documented as of this encounter Plan of Treatment Not on file documented as of this encounter Procedures Procedure Name Priority Date/Time Associated Diagnosis Comments US BIOPHYSICAL PROF W NST Timed Study 03/24/2009 1:31 PM CDT US OB LTD 1 OR MORE FETUSES Timed Study 03/24/2009 1:31 PM CDT US BIOPHYSICAL PROF W NST Timed Study 03/17/2009 9:45 AM CDT US OB LTD 1 OR MORE FETUSES Timed Study 03/17/2009 9:45 AM CDT US OB LTD 1 OR MORE FETUSES Routine 03/14/2009 7:48 AM CDT US OB LTD 1 OR MORE FETUSES Routine 03/13/2009 2:56 PM CDT US BIOPHYSICAL PROF W NST Timed Study 03/10/2009 10:30 AM CDT US OB LTD 1 OR MORE FETUSES Timed Study 03/10/2009 10:30 AM CDT US OB LTD 1 OR MORE FETUSES Timed Study 03/06/2009 8:45 AM CDT US BIOPHYSICAL PROF W NST Timed Study 03/06/2009 8:45 AM CDT US OB LTD 1 OR MORE FETUSES Timed Study 02/27/2009 7:54 AM CDT documented in this encounter Results * US BIOPHYSICAL PROFILE (03/24/2009 1:31 PM CDT) Anatomical Region Laterality Modality Pelvis Other Narrative 03/24/2009 1:31 PM CDT FINAL - Order Information Only Procedure Note Owen Brewer RN - 08/29/2015 FINAL - Order Information Only us Juani Richardson MD US ORDERABLES Final Result * US OB LTD 1 OR MORE FETUSES (03/24/2009 1:31 PM CDT) Anatomical Region Laterality Modality Pelvis Other Narrative 03/24/2009 1:31 PM CDT FINAL - Order Information Only Procedure Note Owen Brewer RN - 08/29/2015 FINAL - Order Information Only us Juani Richardson MD US ORDERABLES Final Result * US OB LTD 1 OR MORE FETUSES (03/17/2009 9:45 AM CDT) Anatomical Region Laterality Modality Pelvis Other Narrative 03/17/2009 9:45 AM CDT FINAL - Order Information Only Procedure Note Owen Brewer RN - 08/29/2015 FINAL - Order Information Only us Juani Richardson MD US ORDERABLES Final Result * US BIOPHYSICAL PROFILE (03/17/2009 9:45 AM CDT) Anatomical Region Laterality Modality Pelvis Other Narrative 03/17/2009 9:45 AM CDT FINAL - Order Information Only Procedure Note Owen Brewer RN - 08/29/2015 FINAL - Order Information Only us Juani Richardson MD US ORDERABLES Final Result * US OB LTD 1 OR MORE FETUSES (03/14/2009 7:48 AM CDT) Anatomical Region Laterality Modality Pelvis Other Narrative 03/14/2009 7:48 AM CDT FINAL - Order Information Only Procedure Note Owen Brewer RN - 08/29/2015 FINAL - Order Information Only us Amari Shrestha MD US ORDERABLES Final Re sult * US OB LTD 1 OR MORE FETUSES (03/13/2009 2:56 PM CDT) Anatomical Region Laterality Modality Pelvis Other Narrative 03/13/2009 2:56 PM CDT FINAL - Order Information Only Procedure Note Owen Brewer RN - 08/29/2015 FINAL - Order Information Only us Amari Shrestha MD US ORDERABLES Final Re sult * US BIOPHYSICAL PROFILE (03/10/2009 10:30 AM CDT) Anatomical Region Laterality Modality Pelvis Other Narrative 03/10/2009 10:30 AM CDT FINAL - Order Information Only Procedure Note Owen Brewer RN - 08/29/2015 FINAL - Order Information Only us Juani Richardson MD US ORDERABLES Final Result * US OB LTD 1 OR MORE FETUSES (03/10/2009 10:30 AM CDT) Anatomical Region Laterality Modality Pelvis Other Narrative 03/10/2009 10:30 AM CDT FINAL - Order Information Only Procedure Note Owen Brewer RN - 08/29/2015 FINAL - Order Information Only us Juani Richardson MD US ORDERABLES Final Result * US OB LTD 1 OR MORE FETUSES (03/06/2009 8:45 AM CDT) Anatomical Region Laterality Modality Pelvis Other Narrative 03/06/2009 8:45 AM CDT FINAL - Order Information Only Procedure Note Owen Brewer RN - 08/29/2015 FINAL - Order Information Only us Juani Richardson MD US ORDERABLES Final Result * US BIOPHYSICAL PROFILE (03/06/2009 8:45 AM CDT) Anatomical Region Laterality Modality Pelvis Other Narrative 03/06/2009 8:45 AM CDT FINAL - Order Information Only Procedure Note Owen Brewer RN - 08/29/2015 FINAL - Order Information Only us Juani Richardson MD US ORDERABLES Final Result * US OB LTD 1 OR MORE FETUSES (02/27/2009 7:54 AM CDT) Anatomical Region Laterality Modality Pelvis Other Narrative 02/27/2009 7:54 AM CDT FINAL - Order Information Only Procedure Note Owen Brewer RN - 08/29/2015 FINAL - Order Information Only us Juani Richardson MD US ORDERABLES Final Result documented in this encounter Visit Diagnoses Diagnosis Elderly multigravida with antepartum condition or complication Other current maternal conditions classifiable elsewhere, antepartum documented in this encounter Care Teams Analysis Engineer Relationship Specialty Start Date End Date Luis Alfredo Lau MD PCP - General 02/17/08 documented as of this encounter
--- OUTSIDE RECORDS SUMMARY | 2025-01-26 02:09 | XMS_ITS | Encounter Summary ---
Author Organization [facility] Address [address] [place] [address] Care Team Providers Care Junior Php Developer Name Role Phone Luis Alfredo Lau MD Primary Care Provider [phone] Encounter Details Date Type Department Care Team (Latest Contact Info) Description 11/22/2008 Outpatient Historical [facility] Day, Juani Fields MD [address] [place] [address] Elderly Multigravida with Antepartum Condition or Complication Social History Tobacco Use Types Packs/Day Years Used Date Smoking Tobacco: Never Alcohol Use Standard Drinks/Week Comments No 0 (1 standard drink = 0.6 oz pur e alcohol) Comments Yes Sex and Gender Information Value Date Recorded Sex Assigned at Not on file 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 Gender Identity Not on file Sexual Orientation Not on file documented as of this encounter Plan of Treatment Not on file documented as of this encounter Procedures Procedure Name Priority Date/Time Associated Diagnosis Comments US OB LTD 1 OR MORE FETUSES Timed Study 12/12/2008 12:20 PM CDT US OB LTD 1 OR MORE FETUSES Timed Study 11/22/2008 8:11 AM CDT documented in this encounter Results * US OB LTD 1 OR MORE FETUSES (12/12/2008 12:20 PM CDT) Anatomical Region Laterality Modality Pelvis Other Narrative 12/12/2008 12:20 PM CDT FINAL - Order Information Only Procedure Note Owen Brewer RN - 08/29/2015 FINAL - Order Information Only us Juani Richardson MD US ORDERABLES Final Result * US OB LTD 1 OR MORE FETUSES (11/22/2008 8:11 AM CDT) Anatomical Region Laterality Modality Pelvis Other Impressions 11/22/2008 8:11 AM CDT See scanned document. us Juani Richardson MD US ORDERABLES Final Result documented in this encounter Visit Diagnoses Diagnosis Elderly multigravida with antepartum condition or complication documented in this encounter Care Teams Junior Php Developer Relationship Specialty Start Date End Date Luis Alfredo Lau MD PCP - General 02/17/08 documented as of this encounter
--- OUTSIDE RECORDS SUMMARY | 2025-01-26 02:09 | XMS_ITS | Encounter Summary ---
Author Organization [facility] Address [address] [place] [address] Care Team Providers Care Authorization Specialist Name Role Phone Luis Alfredo Lau MD Primary Care Provider [phone] Encounter Details Date Type Department Care Team (Late st Contact Info) Description 04/01/2009 Inpatient Historical [facility] Day, Juani Fields MD [address] [place] [address] Social History Tobacco Use Types Packs/Day Years Used Date Smoking Tobacco: Never Alcohol Use Standard Drinks/Week Comments No 0 (1 standard drink = 0.6 oz pur e alcohol) Comments Yes Sex and Gender Information Value Date Recorded Sex Assigned at Not on file 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 Gender Identity Not on file Sexual Orientation Not on file documented as of this encounter Plan of Treatment Not on file documented as of this encounter Procedures Procedure Name Priority Date/Time Associated Diagnosis Comments PATHOLOGY Routine 04/01/2009 5:00 PM CDT CBC WITH DIFFERENTIAL Stat 04/01/2009 1:35 PM CDT TYPE AND SCREEN Routine 04/01/2009 1:35 PM CDT documented in this encounter Results * PATHOLOGY (04/01/2009 5:00 PM CDT) FINAL [place]PORT [facility] [address] [place], [place] [address] Patient: KRISTEN ADAMS : 1985 Procedure Date: 04/01/2009 Accession Date: 04/03/2009 Case No: [id number] Ordering Dr: JAIRO ALEXIS Case type SW is performed by [place], [place]; all other case types are performed by [facility], [place], [place] SURGICAL PATHOLOGY & NON-GYNECOLOGIC CYTOPATHOLOGY REPORT DIAGNOSIS PLACENTA, PRIMARY SECTION: - ACUTE CHORIOAMNIONITIS, GRADE 2 (SEE DESCRIPTION). - TRUE KNOT, UMBILICAL CORD. - SINGLE UMBILICAL ARTERY (TWO-VESSEL CORD). - SUBCHORIONIC FIBRIN DEPOSITS. Specimen Description: Placenta. Operative Procedure: Primary section. Patient Information/Histor y/Diagnosis: Intrauterine at 37-5/7 weeks; intrauterine growth restriction and two-vessel cord. Gross: The specimen is received in a single container labeled Kristen Adams and designated no micro. The specimen consists of a 444-g, 16.0 x 13.0 x 3.0-cm chavez placenta. An attached two-vessel umbilical cord that is 63.7 cm in length x 0.8 cm in diameter inserts peripherally at the disk edge. Located 19.0 cm from the umbilical cord insertion site is a loose, true knot that is king and smooth and is without compression. A loose segment of umbilical cord that is 4.1 cm in length x 0.8 cm in diameter is also present with all segments of umbilical cord king, normally torsed and without compression. The membranes are king, semitranslucent, and shiny with marginal insertion and rupture at the disk edge. The chorionic plate is king to dark purple with a 7.5 x 6.0-cm, king, plaque-like lesion that is located 2.5 cm from the umbilical cord insertion site. Small- to medium-caliber vessels are intact on the chorionic plate. The basal plate is composed of well-formed and intact cotyledons without adhering or deforming blood clot. Upon sectioning the disk, the chorionic plate lesion has king-red, laminated, cut surfaces. The parenchyma is dark red, soft and spongy with no other gross lesions. Jewelry Jobber sections are submitted in cassettes as follows: A1-true knot and umbilical cord side; A2- umbilical cord maternal side and membrane roll; A3-chorionic plate lesion; A4 and A5-parenchyma. JCL/LKP 04.04.2009 01:35 pm Microscopic: The sections are labeled [id number], Kristen Adams. The placental weight is between the 50th and 75th percentile for a 37-week gestation. The umbilical cord has only two vessels, and displays areas of acute funisitis. There is no evidence of vascular thrombosis or other specific pathologic alterations related to the areas sampled in the vicinity of the true knot. Sections of the membranes and chorionic plate display acute chorioamnionitis, grade 2. Subchorionic fibrin deposition is also identified. The villi appear mature. BBK/PHC 04.05.2009 02:46 pm Staging Form: No. ELECTRONIC SIGNATURE FOR IVANNA CALVERT M.D.- 04/05/09 03:49 pm [facility] 04/01/2009 5:00 PM CDT Jairo Alexis MD PATHOLOGY/CYTOLOGY ORDERABLES Final Result Performing Organization Address City/[facility] Co de Phone Number [facility] CLIA# [id number] [address] [place] [address] * TYPE AND SCREEN (04/01/2009 1:35 PM CDT) HISTORY CHECK No Historical ABO/Rh [facility] ABO/RH TYPE O Positive [facility] SPECIMEN LIFE 3 days from drawdate [facility] ANTIBODY SCREEN Negative [facility] Blood specimen (specimen) 04/01/2009 1:35 PM CDT us Juani Richardson MD BLOOD BANK ORDERABLES Edited INTERFACE SYSTEM Refer to clinic/hospital department [facility] CLIA# [id number] [address] [place] [address] * (ABNORMAL) CBC WITH DIFFERENTIAL (04/01/2009 1:35 PM CDT) RDW-STDEV 40.0 37.1 - 48.7 fL [facility] RBC 3.74(L) 3.90 - 4.90 M/uL [facility] MCHC 35.3 31.5 - 35.5 % [facility] MCV 90.1 82.0 - 99.0 fL [facility] PLATELETS 144 140 - 350 K/uL [facility] HEMOGLOBIN 11.9 11.8 - 14.8 g/dL [facility] RDW 12.4 11.5 - 14.5 % [facility] WBC 10.5(H) 4.0 - 9.8 K/uL [facility] MCH 31.8 27.2 - 32.6 pg [facility] MPV 10.7 9.3 - 12.4 fL [facility] HEMATOCRIT 33.7(L) 35.5 - 44.0 % [facility] MONOCYTES 7 3 - 13 % [facility] MONOCYTE ABSOLUTE 0.75 0.10 - 1.30 K/uL [facility] NEUTROPHILS 81(H) 45 - 70 % [facility] NEUTROPHIL ABSOLUTE 8.52(H) 1.90 - 7.00 K/uL [facility] EOSINOPHILS 0 0 - 7 % [facility] EOSINOPHIL ABSOLUTE 0.01 0.00 - 0.70 K/uL [facility] LYMPHOCYTES 12(L) 16 - 45 % [facility] LYMPHOCYTE ABSOLUTE 1.24 0.70 - 4.50 K/uL [facility] BASOPHILS 0 0 - 2 % [facility] BASOPHILS ABSOLUTE 0.01 0.00 - 0.20 K/uL [facility] Blood specimen (specimen) 04/01/2009 1:35 PM CDT 04/01/2009 1:39 PM CDT us Juani Richardson MD HEMATOLOGY ORDERABLES Edited [facility] CLIA# [id number] [address] [place] [address] documented in this encounter Visit Diagnoses Not on filedocumented in this encounter Care Teams Authorization Specialist Relationship Specialty Start Date End Date Luis Alfredo Lau MD PCP - General 02/17/08 documented as of this encounter
--- OUTSIDE RECORDS SUMMARY | 2025-01-26 02:10 | XMS_ITS | Encounter Summary ---
Author Organization [facility] Address [address] [place] [address] Care Team Providers Care Ham Doctor Name Role Phone Luis Alfredo Lau MD Primary Care Provider [phone] Encounter Details Date Type Department Care Team (Late st Contact Info) Description 12/02/2002 Outpatient Historical [facility] Internal Medicine [place] [address] [place] [address] Luis Alfredo Lau MD [address] [place] [address] Social History Tobacco Use Types Packs/Day Years Used Date Smoking Tobacco: Never Assessed Comments Unknown Sex and Gender Information Value Date Recorded Sex Assigned at Not on file 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
--- OUTSIDE RECORDS SUMMARY | 2025-01-26 02:10 | XMS_ITS | Encounter Summary ---
Author Organization [facility] Address [address] [place] [address] Care Team Providers Care President Financial Institution Name Role Phone Luis Alfredo Lau MD Primary Care Provider [phone] Encounter Details Date Type Department Care Team (Late st Contact Info) Description 02/17/2008 Outpatient Historical [facility] Luis Alfredo Lau MD [address] [place] [address] Abdominal Pain, Generalized Social History Tobacco Use Types Packs/Day Years Used Date Smoking Tobacco: Never Alcohol Use Standard Drinks/Week Comments Yes 0.8 (1 standard drink = 0.6 oz p ure alcohol) Comments No Sex and Gender Information Value Date Recorded Sex Assigned at Not on file 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
--- OUTSIDE RECORDS SUMMARY | 2025-01-26 02:10 | XMS_ITS | Encounter Summary ---
Author Organization [facility] Address 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
[2025-01-26 14:00] VITALS: BP 120/64; PULSE 88; RESP 16; TEMP 36.7; O2SAT 100; BMI 22.8
[2025-01-26 14:14] LABS: BEDSIDEPREGUCG Negative (Negative)
--- NOTE | 2025-01-26 14:27 | P.PNAN_ITS ---
Anes - Initial Pre Proc Eval Procedure: Operation Date: 01/26/25 15:00 Proposed Procedures p EGD & Diagnostic Colonoscopy - Michael Mckeon MD Date/Time: 01/26/25 14:27 Surgeon: Michael Mckeon MD Pre Op Diagnosis: Iron deficiency anemia, unspecified Patient Data Age: 39 Gender: F Height: 1.7 m Weight: 66.1 kg Last Vital Signs Temp 98.0 F 01/26/25 14:00 Pulse 88 01/26/25 14:00 Resp 16 01/26/25 14:00 BP 120/64 01/26/25 14:00 Pulse Ox 100 01/26/25 14:00 O2 Del Method Room Air 01/26/25 14:00 Allergies Allergy/AdvReac Type Severity Reaction Status Date / Time No Known Allergies Allergy Verified 01/26/25 14:08 Home Medications ?Medication ?Instructions ?Recorded ?Confirmed ?Type pantoprazole 40 mg tablet,delayed 40 mg PO QAM 8 weeks #56 tabs 01/22/25 01/25/25 Rx release (Protonix) ondansetron HCl 4 mg tablet 4 mg PO Q6H PRN nausea and 01/25/25 Rx vomiting #4 tabs Laboratory Tests 01/26/25 14:00 POC Urine HCG, Qual Negative (Negative) Patient hx anesthesia problems: none Family hx anesthesia problems: none Results Review: All pre-operative results and documents have been reviewed as part of the pre- operative evaluation. [facility] Past Medical History Medical History (Updated 01/22/25 @ 14:03 by Michael Mckeon MD) Weight loss HTN (hypertension) with goal to be determined Fever Family History Family History (Updated 01/21/25 @ 17:49 by Lalitha Beckwith RN) Father Hypertension Mother Heart disease Social History Social History Smoking status: Never smoker Alcohol intake: former Drinks per week: 2 Substance use: never Do You Feel Safe in your Home?: Yes Lack of Transportation: No Lack of Food: Never True Current Housing: I Have Housing Concerned About Future Housing: No Difficulty Paying Gas/Electric Bills: No Difficulty Paying for Meds: No Currently Unemployed: No Education: Don't Know Difficulty w/ Childcare or Family Care: No Spiritual care concerns: No Anes - Eval Final PreProcedure Day of Procedure 01/26/25 14:27 Patient weight: normal Heart: regular rate and rhythm Lungs: clear to auscultation Airway: Mallampati scale class II Neurological: alert and oriented Last oral intake: >/= 8 hours ASA classification: II Emergent: no Anesthetic plan: proceed Anesthesia type and monitoring: general GIVS and standard monitoring Results Review: All pre-operative results and documents have been reviewed as part of the pre- operative evaluation. Informed Consent: The patient's anesthetic plan and its attendant risks and benefits were discussed with the patient/family/POA. Questions were solicited and answers provided to the satisfaction of the patient/family/POA.
[2025-01-26] MEDS: LACTATED RINGERS 1,000 ML 150 ML IV CONT (14:52)
--- NOTE | 2025-01-26 15:13 | WPDHPUPDATE1 ---
History and Physical Update Update Date/Time: 01/26/25 15:13 History and Physical has been reviewed, including an updated exam of the patient. There are NO changes in the patient's condition. Risks, benefits, and alternatives have been discussed and questions answered. Patient agrees to proceed with procedure.
--- NOTE | 2025-01-26 15:24 | S_PTH ---
PATIENT: Lydia Adams LOC: [facility]#:[id number] AGE/SX: 39/F ROOM: RE01/26/[address]: Michael Mckeon MD : 1985 BED: DIS: 01/26/2025 SPEC #: [id number] RECD: 01/27/25 08:42 STATUS: KSENIA MANCILLA #: [id number] COLLIN: 01/26/25 15:[address]: Michael Mckeon DEPT: [facility] Surgical RECD BY: Mecca Gregg ENTERED: 01/27/25 08:42 SP TYPE: Surgical OTHR DR: Debra Mia, PA-C Tissues: A - Gastric Biopsy B - Small Bowel Bx C - Colon Polypectomy D - Colon Biopsy Procedures: Hematoxylin and Eosin Stain Gross and Microscopic Level 4 MLH1 MSH2 MSH6 PMS2
--- NOTE | 2025-01-26 15:25 | SUR.OPER ---
EGD: [id number] Colon: 1523- 1530
[2025-01-26 15:39] VITALS: BP 97/46; PULSE 77; RESP 22; O2SAT 100
[2025-01-26 15:49] VITALS: BP 107/59; PULSE 75; RESP 15; O2SAT 100
[2025-01-26 15:59] VITALS: BP 109/64; PULSE 73; RESP 15; O2SAT 100
== END 2025-01-26 16:23 | disposition home or self-care (01) ==
PROVIDERS: Anesthesiology; PCP Physician Assistant; Referring Provider Internal Medicine Gastroenterology; Visit Provider Internal Medicine Gastroenterology
PROC: 0DJ08ZZ Inspection of Upper Intestinal Tract, Via Natural or Artificial Opening Endoscopic (ICD-10-PCS; CPT 45378; principal; 2025-01-26 15:00)
DX: D50.9 Iron deficiency anemia, unspecified (principal); C19 Malignant neoplasm of rectosigmoid junction; D12.5 Benign neoplasm of sigmoid colon; K29.70 Gastritis, unspecified, without bleeding; I10 Essential (primary) hypertension; F41.9 Anxiety disorder, unspecified; R00.2 Palpitations; F41.0 Panic disorder [episodic paroxysmal anxiety]; Z82.49 Family history of ischemic heart disease and other diseases of the circulatory system
CPT/HCPCS: 43239; 45380; 45385; 88305; 88342; J2003; J2704; J7120

== ENCOUNTER 2025-01-27 09:41 | Outpatient (CLI) | payer OTHER, SELFPAY ==
--- NOTE | ~2025-01-27 | CT_ITS ---
CT abdomen pelvis w con Ordering provider: Michael Mckeon MD History: 39 years Female with . large rectosigmoid mass . Comparison: None. Technique: CT abdomen and pelvis with IV and without oral contrast. Automated exposure control and it erative reconstruction technique were employed. The dose-length product was 328.09 mGy-cm. 100 mL Omn ipaque 350 was given IV. Findings: VISUALIZED LOWER CHEST: Normal. UPPER ABDOMINAL ORGANS: Liver: Fat infiltration. Gallbladder: Normal. Spleen: Normal. Stomach/duodenum: Normal. Pancreas: Normal. Adrenals: Normal. Kidneys: 1.3 cm cyst is seen in the right kidney upper pole. Tiny cyst in the right kidney mid pole PELVIC ORGANS: The bladder is underfilled with thickened wall. IUD is seen in the uterus. Bilateral ovarian cysts are seen with the largest on the right side measures 3.4 x 1.8 cm and 2.1 x 2 .4 cm. And on the left 2.6 x 2.3 cm. BOWEL AND MESENTERY: Colon: No evidence of diverticulitis.. The appendix is not demonstrated. Small Bowel: Normal. No obstruction. Peritoneum/mesentery: No free air or free fluid. No mesenteric lymphadenopathy. RETROPERITONEUM: Normal aorta. No retroperitoneal lymphadenopathy. MUSCULOSKELETAL: Superficial soft tissues: The superficial soft tissues are normal. Bones: Normal spine. IMPRESSION: 1. No evidence of appendicitis, diverticulitis or intestinal obstruction. 2. Fat infiltration of the liver. 3. Bilateral ovarian cysts. Clinical correlation and follow-up advised. 4. Small right renal cyst. Reviewed, dictated and finalized at location A.
--- OUTSIDE RECORDS SUMMARY | 2025-01-27 10:11 | XMS_ITS | Encounter Summary ---
Author Organization [facility] Address [address] [place] [address] Care Team Providers Care Credit Officer Name Role Phone Luis Alfredo Lau MD Primary Care Provider [phone] Encounter Details Date Type Department Care Team (Latest Contact Info) Description 2009 Outpatient Historical [facility] Day, Juani Fields MD [address] [place] [address] Elderly Multigravida with Antepartum Condition or Complication Social History Tobacco Use Types Packs/Day Years Used Date Smoking Tobacco: Never Alcohol Use Standard Drinks/Week Comments No 0 (1 standard drink = 0.6 oz pur e alcohol) Comments Yes Sex and Gender Information Value Date Recorded Sex Assigned at Not on file 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
--- OUTSIDE RECORDS SUMMARY | 2025-01-27 10:11 | XMS_ITS | Encounter Summary ---
Author Organization [facility] Address [address] [place] [address] Care Team Providers Care Burner Technician Name Role Phone Luis Alfredo Lau MD Primary Care Provider [phone] Encounter Details Date Type Department Care Team (Latest Contact Info) Description 11/22/2008 Outpatient Historical [facility] Day, Juani Fields MD [address] [place] [address] Elderly Multigravida with Antepartum Condition or Complication Social History Tobacco Use Types Packs/Day Years Used Date Smoking Tobacco: Never Alcohol Use Standard Drinks/Week Comments No 0 (1 standard drink = 0.6 oz pur e alcohol) Comments Yes Sex and Gender Information Value Date Recorded Sex Assigned at Not on file 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
--- OUTSIDE RECORDS SUMMARY | 2025-01-27 10:11 | XMS_ITS | Encounter Summary ---
Author Organization [facility] Address [address] [place] [address] Care Team Providers Care Insurance Rater Name Role Phone Luis Alfredo Lau MD Primary Care Provider [phone] Encounter Details Date Type Department Care Team (Late st Contact Info) Description 04/01/2009 Inpatient Historical [facility] Day, Juani Fields MD [address] [place] [address] Social History Tobacco Use Types Packs/Day Years Used Date Smoking Tobacco: Never Alcohol Use Standard Drinks/Week Comments No 0 (1 standard drink = 0.6 oz pur e alcohol) Comments Yes Sex and Gender Information Value Date Recorded Sex Assigned at Not on file 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 Pipe Foreman sections are submitted in cassettes as follows: A1-true knot and umbilical cord side; A2- umbilical cord maternal side and membrane roll; A3-chorionic plate lesion; A4 and A5-parenchyma. JCL/LKP 04.04.2009 01:35 pm Microscopic: The sections are labeled [id number], Kristen Adams. The placental weight is between [...] FOR IVANNA CALVERT M.D.- 04/05/09 03:49 pm [facility] 04/01/2009 5:00 PM CDT Jairo Alexis MD PATHOLOGY/CYTOLOGY ORDERABLES Final Result Performing Organization Address City/[facility] Co de Phone Number [facility] CLIA# [id number] [address] [place] [address] * TYPE AND SCREEN (04/01/2009 1:35 PM CDT) HISTORY CHECK No Historical ABO/Rh [facility] ABO/RH TYPE O Positive [facility] SPECIMEN LIFE 3 days from drawdate [facility] ANTIBODY SCREEN Negative [facility] Blood specimen (specimen) 04/01/2009 1:35 PM CDT us Juani Richardson MD BLOOD BANK ORDERABLES Edited INTERFACE SYSTEM Refer to clinic/hospital department [facility] CLIA# [id number] [address] [place] [address] * (ABNORMAL) CBC WITH DIFFERENTIAL (04/01/2009 1:35 PM CDT) RDW-STDEV 40.0 37.1 - 48.7 fL [facility] RBC 3.74(L) 3.90 - 4.90 M/uL [facility] MCHC 35.3 31.5 - 35.5 % [facility] MCV 90.1 82.0 - 99.0 fL [facility] PLATELETS 144 140 - 350 K/uL [facility] HEMOGLOBIN 11.9 11.8 - 14.8 g/dL [facility] RDW 12.4 11.5 - 14.5 % [facility] WBC 10.5(H) 4.0 - 9.8 K/uL [facility] MCH 31.8 27.2 - 32.6 pg [facility] MPV 10.7 9.3 - 12.4 fL [facility] HEMATOCRIT 33.7(L) 35.5 - 44.0 % [facility] MONOCYTES 7 3 - 13 % [facility] MONOCYTE ABSOLUTE 0.75 0.10 - 1.30 K/uL [facility] NEUTROPHILS 81(H) 45 - 70 % [facility] [place] NEUTROPHIL ABSOLUTE 8.52(H) 1.90 - 7.00 K/uL [facility] EOSINOPHILS 0 0 - 7 % [facility] [place] [place] [facility] EOSINOPHIL ABSOLUTE 0.01 0.00 - 0.70 K/uL [facility] LYMPHOCYTES 12(L) 16 - 45 % [facility] [place] [place] [facility] LYMPHOCYTE ABSOLUTE 1.24 0.70 - 4.50 K/uL [facility] BASOPHILS 0 0 - 2 % [facility] BASOPHILS ABSOLUTE 0.01 0.00 - 0.20 K/uL [facility] Blood specimen (specimen) 04/01/2009 1:35 PM CDT 04/01/2009 1:39 PM CDT us Juani Richardson MD HEMATOLOGY ORDERABLES Edited [facility] CLIA# [id number] [address] [place] [address] documented in this encounter Visit Diagnoses Not on filedocumented in this encounter Care Teams Insurance Rater Relationship Specialty Start Date End Date Luis Alfredo Lau MD PCP - General 02/17/08 documented as of this encounter
--- OUTSIDE RECORDS SUMMARY | 2025-01-27 10:12 | XMS_ITS | Data Portability ---
Author Organization [facility], Main Office Address [address] [place] [address] Assessment No assessment recorded. Plan of Treatment Reminders Order Date Submit Date Provider Last Modified By Organization Details Last Modified Time Details Appointments None recorded. Lab None recorded. Referral None recorded. Procedures None recorded. Surgeries None recorded. Imaging None recorded. Medication Orders neomycin 3.5 mg-polymyxi n 10,000 unit-hydroc ort 10 mg/mL eye drop,susp 2022 [address] [facility] [address], [address], 3 09:42:53 sertraline 50 mg tablet 2022 023 [facility] [address] [address] [place], [address], 3 09:42:53 Patient TargetsNo targets recorded. Patient InstructionsNo instructions recorded. Reason for Referral None Reported. Problems Name Problem SNOMED Code Status Onset Date Resolution Date Notes Provider Name and Address Organization Details Recorded Time Generalized anxiety disorder 03528223 Active 2021 Not Available [facility] 3 20:01:48 Dyssomnia 26837518 Active 2021 Not Available [facility] 3 20:01:48 Anxiety 24037521 Active 2017 Not Available [facility] 3 20:01:48 Conjunctivitis 7323379 Active 2022 CHANTAL Prakash [address] [facility] [address], [place], [address] , [facility] 3 09:42:13 Problem Notes None recorded. Procedures Surgical History Date Name Laterality Status Provider Name and Address Organization Details Recorded Time completed Not Available [facility] 0 10/09/2022 20:01:30 completed Not Available [facility] 0 10/09/2022 20:01:30 Imaging Results None recorded. Procedure Notes None recorded. Medical Equipment None Reported. Allergies Allergen ID Allergen Name Allergen Category Reaction Reaction Severity Criticality Documentation Date Start Date Code Code System Note Provider Name and Address Organization Details Recorded Time 21452 clindamyc in Not available other Not available Not available 10/09/2022 2582 RxNorm incre ased anxie ty Not Available [facility] 3 20:02:37 Medications Name Sig Start Date [...] cm 80 /min 16 /min 97.9 [degF] 34773.7 8 g 120 mm[Hg] 80 mm[Hg] Not Available [facility] 3 20:01:34 Date Recorded Body height Oxygen saturation Oxygen saturation in Arterial blood by Pulse oximetry Heart rate Respiratory rate Body temperature Systolic blood pressure Diastolic blood pressure Provider Name and Address Organization Details Last Updated DateTime 2 167.64 cm 97 % 97 % 70 /min 16 /min 98 [degF] 118 mm[Hg] 68 mm[Hg] Not Available [facility] 3 20:01:34 Date Recorded Body height Body temperature Body mass index (BMI) Body weight Respiratory rate Oxygen saturation Oxygen saturation in Arterial blood by Pulse oximetry Heart rate Systolic blood pressure Diastolic blood pressure Provider Name and Address Organization Details Last Updated DateTime 3 167.64 cm 97.5 [degF] 27.5 kg/m2 72511.5 g 16 /min 99 % 99 % 64 /min 118 mm[Hg] 78 mm[Hg] TERA Funes [place] - [facility] [employer] [facility] 3 09:16:07 Social History Question Answer Notes LastModified by Organizat ion Details LastModified Time Tobacco Smoking Status Never Smoker Not Available [facility] 10/09/2022 20:01:25 Do You Have An Advance Directive? Yes [id number] 026 Information not available 10/09/2022 What Is Your Level Of Caffeine Consumption? Heavy MIGRATION.9089960 026 Information not available 10/09/2022 In The 14 Days Before Symptom Onset, Have You Had Close Contact With A Laboratory-confirm ed COVID-19 While That Case Was Ill? No MIGRATION.0015087 026 Information not available 10/09/2022 In The 14 Days Before Symptom Onset, Have You Had Close Contact With A Person Who Is Under Investigation For COVID-19 While That Person Was Ill? No MIGRATION.6873652 026 Information not available 10/09/2022 What Type Of Diet Are You Following? REGULAR MIGRATION.5495625 026 Information not available 10/09/2022 What Is The Highest Grade Or Level Of School You Have Completed Or The Highest Degree You Have Received? CM08931-1 MIGRATION.5830481 026 Information not available 10/09/2022 Have There Been Any Changes To Your Family Or Social Situation? No MIGRATION.7637394 026 Information not available 10/09/2022 Are There Any Guns Present In Your Home? Yes MIGRATION.0428650 026 Information not available 10/09/2022 Do You Use Insect Repellent Routinely? No MIGRATION.2805930 026 Information not available 10/09/2022 Have You Ever Been Counseled For Unhealthy Alcohol Use? No MIGRATION.5447946 026 Information not available 10/09/2022 What Is Your Relationship Status? Single MIGRATION.0806907 026 Information not available 10/09/2022 Do You Use Your Seat Belt Or Car Seat Routinely? Yes MIGRATION.7098232 026 Information not available 10/09/2022 Do You Have Smoke And Carbon Monoxide Detectors In Your Home? Yes MIGRATION.9317108 026 Information not available 10/09/2022 Do You Use Sunscreen Routinely? Yes MIGRATION.9156391 026 Information not available 10/09/2022 Has Tobacco Cessation Counseling Been Provided? No MIGRATION.3929214 026 Information not available 10/09/2022 Have You Recently Traveled Abroad? No MIGRATION.7570876 026 Information not available 10/09/2022 Do You Have Any Dietary Restrictions? No MIGRATION.2531946 026 Information not available 10/09/2022 Sex: Unknown Functional Status Question Answer Note LastModified by Organizat ion Details LastModified Time Do you use any illicit or recreational drugs? No MIGRATION.504334 5425 Information not available 10/09/2022 Do you or have you ever used any other forms of tobacco or nicotine? No MIGRATION.373185 1398 Information not available 10/09/2022 What is your level of alcohol consumption? Occasional MIGRATION.241068 9761 Information not available 10/09/2022 Are you currently employed? 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 Moderate MIGRATION.324805 9836 Information not available 10/09/2022 Mental Status None recorded. Family History Relationship Description Onset Age of this Age Resolved Age Notes LastModified by Organization Details LastModified Time Father Hypertensive disorder MIGRATION.[id number] Not available 10/09/2022 20:01:30 Medical History Condition [...] SNOMED-CT Code Diagnosis ICD10 Code Diagnosis Note [id number] CHANTAL Prakash [facility] [address] [place] [address] 11/12/2021 00:00:00 12/08/2021 13:24:02 [id number] CHANTAL Prakash [facility] [address] [place] [address] 05/13/2022 00:00:00 05/13/2022 10:56:05 [id number] CHANTAL Prakash [facility] [address] [place] [address] 07/24/2023 09:09:53 07/24/2023 09:42:05 Adult health examination 036722967 Z00.01 well exam completed. pt declines labs at this time. Generalize d anxiety disorder 95417373 F41.1 refill on sertraline 50mg daily. Conjunctivitis 4870768 H 10.9 rx for neomycin drops as directed Health Concerns Section Related Observation LastModified by Organization Detai ls LastModified Time None Recorded Concern Status LastModified by Organization Details LastModified Time None Recorded Advance Directives Directive Y: Payers Insurance Date Sequence Insurance Name Policy Number Policy Carroll Covered Member ID Carroll Member ID Guarantor Name 08/07/2023 1 [facility] [id number] Lydia Adams [id number] Lydia Adams 07/23/2023 1 [facility] [id number] Lydia Adams [id number] Lydia Adams Notes Date Note Type Note [...] apathy; maintaining functionality;anxie ty;insomnia;sleep disturbances Not Available [facility] 12/08/2021 13:24:02 05/13/2022 text/html Anxiety/Depressi onR eported [...] good; no apathy; maintaining functionality Not Available [facility] 05/13/2022 10:56:05 07/24/2023 text/html Anxiety/Depressi onR eported [...] no shortness of breath Wellness CHANTAL Prakash [address] [place] [address] [address], [place], [address], [place] - [facility] 08/07/2023 15:44:16 OBGyn Episode No OBEpisode recorded.
--- OUTSIDE RECORDS SUMMARY | 2025-01-27 10:12 | XMS_ITS | Encounter Summary ---
Author Organization [facility] Address [address] [place] [address] Care Team Providers Care Fire Medic Name Role Phone Luis Alfredo Lau MD Primary Care Provider [phone] Encounter Details Date Type Department Care Team (Latest Contact Info) Description 01/25/2009 Outpatient Historical [facility] Juani Richardson MD [address] [place] [address] Elderly Multigravida with Antepartum Condition or Complication Social History Tobacco Use Types Packs/Day Years Used Date Smoking Tobacco: Never Alcohol Use Standard Drinks/Week Comments No 0 (1 standard drink = 0.6 oz pur e alcohol) Comments Yes Sex and Gender Information Value Date Recorded Sex Assigned at Not on file 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
--- OUTSIDE RECORDS SUMMARY | 2025-01-27 10:12 | XMS_ITS | Encounter Summary ---
Author Organization [facility] Address 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
--- OUTSIDE RECORDS SUMMARY | 2025-01-27 10:12 | XMS_ITS | Encounter Summary ---
Author Organization [facility] Address [address] [place] [address] Care Team Providers Care Telegrapher Agent Name Role Phone Luis Alfredo Lau MD Primary Care Provider [phone] Encounter Details Date Type Department Care Team (Late st Contact Info) Description 06/30/2001 Outpatient Historical [facility] Internal Medicine [facility] [address] [place] [address] Luis Alfredo Lau MD [address] [place] [address] Social History Tobacco Use Types Packs/Day Years Used Date Smoking Tobacco: Never Assessed Comments Unknown Sex and Gender Information Value Date Recorded Sex Assigned at Not on file 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
--- OUTSIDE RECORDS SUMMARY | 2025-01-27 10:12 | XMS_ITS | Encounter Summary ---
Author Organization [facility] Address 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
--- OUTSIDE RECORDS SUMMARY | 2025-01-27 10:12 | XMS_ITS | Encounter Summary ---
Author Organization [facility] Address [address] [place] [address] Care Team Providers Care Bank Clerk Name Role Phone Luis Alfredo Lau MD Primary Care Provider [phone] Encounter Details Date Type Department Care Team (Latest Contact Info) Description 01/16/2009 Outpatient Historical [facility], MAIN , Juani Fields MD [address] [place] [address] Supervision of High-Risk of Young Primigravida Social History Tobacco Use Types Packs/Day Years Used Date Smoking Tobacco: Never Alcohol Use Standard Drinks/Week Comments No 0 (1 standard drink = 0.6 oz pur e alcohol) Comments Yes Sex and Gender Information Value Date Recorded Sex Assigned at Not on file Legal 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
--- OUTSIDE RECORDS SUMMARY | 2025-01-27 10:12 | XMS_ITS | Clinical Summary ---
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 See individual assays for performing site location. CLINICAL INFORMATION [facility] Comment:None given LAST MENSTRUAL PERIOD [facility] Comment:NONE GIVEN PREV PAP: [facility] Comment:NONE GIVEN PREV BX: [facility] Comment:NONE GIVEN SOURCE [facility] Comment:Endocervix ADEQUACY: [facility] Comment: Satisfactory for evaluation. Endocervical/transformation zone component present. Age and/or menstrual status not provided GENERAL CATEGORIZATION: (A) [facility] Comment:Cytology Results: Ep ithelial Cell Abnormality PAP INTERP (A) [facility] Comment: Atypical Squamous Cells of Undetermined Significance (ASC-US) COMMENT (PAP TEST) [facility] Comment: This Pap test has been evaluated with computer assisted technology. ANGLEDOZER OPERATOR: Rikcy Bolden Comment: YQ, CT(ASCP) CT screening location: [place] [address] [address] [place] [address] PATHOLOGIST [facility] Bold[facility] Comment: Leandro Goss M.D., Board Certified in Anatomic Pathology and Cytopathology. (electronic signature) EXPLANATORY NOTE Que [facility] Bolden Comment: EXPLANATORY NOTE: The Pap is a [...] information. HPV E6/E7 Detected( A) Not Detected [facility] Comment: Methodology: Chef Concierge-Mediated Amplification This assay detects E6/E7 viral messenger RNA (mRNA) from 14 high-risk HPV types (16,18,31,33,35,39,45,51,52,56,58,59,66,68). Cervical sources are required for HPV testing. If a vaginal source from a patient who has had a total hysterectomy with removal of cervix was submitted, please contact the testing laboratory for alternative testing options. For additional information, please refer to http://education.Frockadvisor/faq/SOM251f5 (This link if provided for information/ educational purposes only.) Test Performed at: [facility] [address] [id number] Irene MEDINA Genital SWAB OF ENDOCERVIX / Unknown 02/20/2023 11:12 AM CDT 02/20/2023 2:04 PM CDT us Juani Richardson MD PATHOLOGY/CYTOLOGY ORDERABLES Fi nal Result [facility] [phone] [facility] [address] [id number] from Last 3 Months or Most Recently Relevant to Health Maintenance Insurance [facility] [id number] Advance Directives For more information, please contact: [phone] * Full Code (Latest Code Status on File) Date Activated Date Inactivated Comments 11/13/2015 6:17 PM 11/17/2015 1:17 PM * Full Code Date Activated Date Inactivated Comments 11/13/2015 12:20 PM 11/13/2015 6:16 PM Care Teams Tape Fastener Machine Operator Relationship Specialty Start Date End Date Luis Alfredo Lau MD PCP - General 02/17/08
--- OUTSIDE RECORDS SUMMARY | 2025-01-27 10:12 | XMS_ITS | Encounter Summary ---
Author Organization [facility] Address [address] [place] [address] Care Team Providers Care Concrete Batcher Name Role Phone Luis Alfredo Lau MD Primary Care Provider [phone] Encounter Details Date Type Department Care Team (Latest Contact Info) Description 12/24/2008 Outpatient [facility] Juani Richardson MD [address] [place] [address] Elderly Multigravida with Antepartum Condition or Complication Social History Tobacco Use Types Packs/Day Years Used Date Smoking Tobacco: Never Alcohol Use Standard Drinks/Week Comments No 0 (1 standard drink = 0.6 oz pur e alcohol) Comments Yes Sex and Gender Information Value Date Recorded Sex Assigned at Not on file Legal 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
--- OUTSIDE RECORDS SUMMARY | 2025-01-27 10:12 | XMS_ITS | Encounter Summary ---
Author Organization [facility] Address [address] [place] [address] Care Team Providers Care Multicultural Internship Name Role Phone Luis Alfredo Lau MD Primary Care Provider [phone] Encounter Details Date Type Department Care Team (Late st Contact Info) Description 02/17/2008 Outpatient Historical [facility] Luis Alfredo Lau MD [address] [place] [address] Abdominal Pain, Generalized Social History Tobacco Use Types Packs/Day Years Used Date Smoking Tobacco: Never Alcohol Use Standard Drinks/Week Comments Yes 0.8 (1 standard drink = 0.6 oz p ure alcohol) Comments No Sex and Gender Information Value Date Recorded Sex Assigned at Not on file 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
== END 2025-01-27 09:42 | disposition home or self-care (01) ==
PROVIDERS: PCP Physician Assistant; Visit Provider Internal Medicine Gastroenterology
DX: K62.89 Other specified diseases of anus and rectum (principal); K76.0 Fatty (change of) liver, not elsewhere classified; N83.292 Other ovarian cyst, left side; N83.291 Other ovarian cyst, right side; N28.1 Cyst of kidney, acquired; D50.9 Iron deficiency anemia, unspecified
CPT/HCPCS: 74177; Q9967